=== PATIENT | female | born 1930 | race Caucasian/White ===

== ENCOUNTER → 2017-05-01 | Outpatient (CLI) | payer OTHER ==
[2017-05-01 16:57] LABS: ALT/SGPT 18 U/L (12-78); AST/SGOT 31 U/L (15-37); BLOOD UREA NITROGEN 17 mg/dl (7-18); BUN/CREATININE RATIO 22.3 (10-20); CALCIUM 8.8 mg/dl (8.5-10.1); CARBON DIOXIDE 35 mmol/L (21-32); CHLORIDE 102 mmol/L (98-107); CREATININE 0.74 mg/dl (0.60-1.20); GLUCOSE 62 mg/dl (70-99); POTASSIUM 3.6 mmol/L (3.5-5.1); SODIUM 140 mmol/L (136-145)
[2017-05-01 17:05] LABS: ALB/GLOB RATIO 0.9 (0.9-2); ALKALINE PHOSPHATASE 89 U/L (45-117); CHOLESTEROL 216 mg/dl (0-200); CHOLESTEROL/HDL RATIO 2.8; HDL CHOLESTEROL 77 mg/dl; LDL CHOLESTEROL CALCULATED 124 mg/dl; TRIGLYCERIDES 75 mg/dl (0-150); VERY LOW DENSITY LIPOPROT CALC 15 mg/dl
[2017-05-01 17:24] LABS: HEMATOCRIT 38.3 % (37-47); MEAN CELL VOLUME 94.1 fL (80-100); MEAN CORPUSCULAR HGB CONC 32.9 g/dl (32-36); MEAN PLATELET VOLUME 10.6 fL (7.4-10.4); PLATELET COUNT 213 K/uL (130-400); RED BLOOD COUNT 4.07 M/uL (4.2-5.4); WHITE BLOOD COUNT 8.12 K/uL (4.8-10.8)
[2017-05-01 20:32] LABS: BASO % 0.6 %; BASO ABS # 0.05 K/uL (0-0.2); COMPLETE YES; EOS % 0.9 %; IG% 0.1 %; LYMPH % 50.9 %; LYMPH ABS # 4.13 K/uL (1.2-3.4); MONO % 8.1 %; NEUT % 39.4 %
== END | disposition home or self-care (01) ==
LOC: C.LAB1850 14:33
PROVIDERS: ATTEND Internal Medicine
DX: E03.9 Hypothyroidism, unspecified (principal); J96.91 Respiratory failure, unspecified with hypoxia

== ENCOUNTER → 2017-05-16 | Outpatient (CLI) | payer OTHER ==
--- NOTE | 2017-05-16 16:41 | ECHOCARDIOGRAM REPORT ---
*NOTICE TO RECEIVING [employer] [employer] This information is strictly Confidential and protected under [place] law. [place] law prohibits you from making any further disclosure of this information unless further disclosure is expressly permitted by the written consent of the person to whom it pertains or is authorized by law. A general authorization for the release of medical or other information is not sufficient for this purpose. Hospital accepts no responsibility if the information is made available to any other person, INCLUDING THE PATIENT. Interpretation Summary * Name: JESSIE WASHINGTON Study Date: 05/16/2017 02:13 PM * Patient Location: [facility] HR: 87 * : 1930 (M/d/yyyy) Gender: Female Height: 56 in * Age: 86 yrs Ethnicity: CA Weight: 108 lb * Ordering Physician: Patrick Valdez * Referring Physician: Patrick Valdez * Performed By: Jenifer Alejandra RCS * * Reason For Study: Chest pain * BSA: 1.4 m2 * -- Conclusions -- * Left ventricular systolic function is normal. * No regional wall motion abnormalities noted. * Ejection Fraction = 55-60%. * There is borderline concentric left ventricular hypertrophy. * Grade I diastolic dysfunction, (abnormal relaxation pattern). * Moderate valvular aortic stenosis. * There is mild tricuspid regurgitation. Procedure Details * Left Ventricle The left ventricle is normal in size. There is borderline concentric left ventricular hypertrophy. Ejection Fraction = 55-60%. Left ventricular systolic function is normal. No regional wall motion abnormalities noted. * Right Ventricle The right ventricle is not well visualized. The right ventricular systolic function is normal as assessed by tricuspid annular plane systolic excursion (TAPSE) (normal >1.5 cm). * Atria The left atrium is mildly dilated. Right atrial size is normal. No ASD detected; PFO is not assessed. * Mitral Valve The mitral valve anatomy is normal. There is no mitral valve stenosis. Significant mitral regurgitation is absent. * Tricuspid Valve The tricuspid valve anatomy is normal. There is mild tricuspid regurgitation. * Aortic Valve The aortic valve is not well visualized. Moderate valvular aortic stenosis. Trace aortic regurgitation. * Pulmonic Valve The pulmonary valve is not well seen, but the Doppler examination is normal without significant regurgitation or stenosis. * Great Vessels The aortic root is normal size. * Pericardium/Pleural There is no pericardial effusion. * Left Ventricular Diastolic Function Grade I diastolic dysfunction, (abnormal relaxation pattern). * * MMode 2D Measurements and Calculations * IVSd 0.94 cm * * LVIDd 3.7 cm * LVIDs 2.6 cm * LVPWd 0.83 cm * * IVS/LVPW 1.1 * FS 29.8 % * EDV(Teich) 59.6 ml * ESV(Teich) 25.2 ml * EF(Teich) 57.7 % * * EDV(cubed) 52.3 ml * ESV(cubed) 18.1 ml * EF(cubed) 65.4 % * * LV mass(C)d 96.2 grams * LV mass(C)dI 70.4 grams/m\S\2 * * SV(Teich) 34.4 ml * SI(Teich) 25.2 ml/m\S\2 * SV(cubed) 34.2 ml * SI(cubed) 25.0 ml/m\S\2 * * Ao root diam 2.5 cm * Ao root area 5.1 cm\S\2 * * LVOT diam 2.0 cm * LVOT area 3.2 cm\S\2 * * LVAd ap4 18.3 cm\S\2 * LVLd ap4 6.8 cm * EDV(MOD-sp4) 41.0 ml * EDV(sp4-el) 41.6 ml * LVAs ap4 10.0 cm\S\2 * LVLs ap4 5.5 cm * ESV(MOD-sp4) 17.9 ml * ESV(sp4-el) 15.6 ml * EF(MOD-sp4) 56.4 % * EF(sp4-el) 62.6 % * * LVAd ap2 23.5 cm\S\2 * LVLd ap2 7.5 cm * EDV(MOD-sp2) 59.5 ml * EDV(sp2-el) 62.1 ml * LVAs ap2 11.7 cm\S\2 * LVLs ap2 6.2 cm * ESV(MOD-sp2) 20.8 ml * ESV(sp2-el) 18.7 ml * EF(MOD-sp2) 65.0 % * EF(sp2-el) 69.9 % * * LVLd %diff 9.6 % * EDV(MOD-bp) 52.2 ml * LVLs %diff 11.4 % * ESV(MOD-bp) 20.5 ml * EF(MOD-bp) 60.8 % * * SV(MOD-sp4) 23.1 ml * SI(MOD-sp4) 16.9 ml/m\S\2 * * SV(MOD-sp2) 38.6 ml * SI(MOD-sp2) 28.3 ml/m\S\2 * * SV(MOD-bp) 31.7 ml * SI(MOD-bp) 23.2 ml/m\S\2 * * SV(sp4-el) 26.1 ml * SI(sp4-el) 19.1 ml/m\S\2 * * SV(sp2-el) 43.4 ml * SI(sp2-el) 31.8 ml/m\S\2 * * * Doppler Measurements and Calculations * MV A max nayan 55.3 cm/sec * * MV dec time 0.17 sec * * Ao V2 max 298.6 cm/sec * Ao max PG 35.7 mmHg * Ao max PG (full) 33.4 mmHg * Ao V2 mean 214.1 cm/sec * Ao mean PG 20.8 mmHg * Ao mean PG (full) 19.8 mmHg * Ao V2 VTI 59.5 cm * EZE(I,A) 0.74 cm\S\2 * EZE(I,D) 0.74 cm\S\2 * EZE(V,A) 0.79 cm\S\2 * EZE(V,D) 0.79 cm\S\2 * * LV V1 max PG 2.3 mmHg * LV V1 mean PG 1.0 mmHg * * LV V1 max 75.2 cm/sec * LV V1 mean 45.5 cm/sec * LV V1 VTI 13.9 cm * * SV(Ao) 304.0 ml * SI(Ao) 222.5 ml/m\S\2 * SV(LVOT) 44.0 ml * SI(LVOT) 32.2 ml/m\S\2 * * TR max nayan 246.4 cm/sec * * *
== END | disposition home or self-care (01) ==
LOC: C.CPL 13:59
PROVIDERS: ATTEND Internal Medicine Pulmonary Disease
DX: R07.89 Other chest pain (principal); R06.02 Shortness of breath; R01.1 Cardiac murmur, unspecified

== ENCOUNTER 2017-07-14 14:07 | Inpatient (IN) | payer OTHER ==
[~2017-07-14] VITALS: Ht 149.9 cm; Wt 59.0 kg
[2017-07-14] MEDS ORDERED: LACTATED RINGER'S 1000ML 1,000 ML IV SCH (14:41)
[2017-07-14] MEDS: HYDROmorphone INJ 0.5 MG/0.5 ML SYR IV PRN ×2 (14:53→15:40)
[2017-07-14 15:06] LABS: BASO % 0.4 %; BASO ABS # 0.03 K/uL (0-0.2); COMPLETE YES; EOS % 1.7 %; HEMATOCRIT 38.6 % (37-47); IG% 0.1 %; LYMPH % 47.2 %; LYMPH ABS # 3.41 K/uL (1.2-3.4); MEAN CELL VOLUME 94.1 fL (80-100); MEAN CORPUSCULAR HEMOGLOBIN 29.8 pg (25-34); MEAN CORPUSCULAR HGB CONC 31.6 g/dl (32-36); MEAN PLATELET VOLUME 9.5 fL (7.4-10.4); MONO % 5.5 %; NEUT % 45.1 %; PLATELET COUNT 195 K/uL (130-400); WHITE BLOOD COUNT 7.22 K/uL (4.8-10.8)
[2017-07-14 15:22] LABS: BUN/CREATININE RATIO 19.4 (10-20); CALCIUM 8.6 mg/dl (8.5-10.1); CREATININE 0.79 mg/dl (0.60-1.20)
[2017-07-14] MEDS ORDERED: PARO10TA PO (15:32)
[2017-07-14] MEDS ORDERED: MELA1TAB5 PO (15:32)
[2017-07-14] MEDS ORDERED: MIRT15TA2 PO (15:32)
--- NOTE | 2017-07-14 15:38 | DIAGNOSTIC IMAGING REPORT ---
SINGLE VIEW PELVIS; 2 VIEWS RIGHT HIP CLINICAL HISTORY: Fall with right hip pain. FINDINGS: An AP view of the pelvis with AP and crosstable lateral views of the right hip are obtained. No prior studies are available for comparison at the time of dictation. The skeletal structures are osteopenic. There is an impacted subcapital fracture of the right femur with mild apex lateral angulation. No additional fracture is seen. The bony pelvis and left hip appear intact. Moderate to advanced arthritic change and joint space loss is present in both hips. Sclerotic change is seen in the sacroiliac joints and pubic symphysis. Moderate lumbosacral spondylosis is observed. Mild soft tissue swelling is present in the right upper thigh. There is a nonobstructed abdominal bowel gas pattern. IMPRESSION: 1. There is an impacted and angulated subcapital fracture of the right femur. 2. No additional fracture is seen. 3. Osteopenia and arthritic change as above. Electronically signed by: Asim Pritchett M.D. 07/14/2017 3:36 PM Dictated Date/Time: 07/14/2017 3:35 PM
[2017-07-14 15:43] LABS: INR 0.9 (0.9-1.1)
[2017-07-14] MEDS ORDERED: ONDANSETRON INJ 2 MG/ML 2 ML VIAL IV PRN (15:45)
[2017-07-14] MEDS ORDERED: NALOXONE HCL 0.4 MG/1 ML VIAL/CARP IV PRN (15:45)
[2017-07-14] MEDS ORDERED: BISACODYL 10 MG SUPP PR PRN (15:45)
[2017-07-14] MEDS ORDERED: ALUMINUM/MAGNESIUM/SIMETH (MAALOX MAX) 30 ML UDC PO PRN (15:45)
[2017-07-14] MEDS ORDERED: POLYETHYLENE (MIRALAX) 17 GM PACK PO PRN (15:45)
[2017-07-14] MEDS ORDERED: SOD PHOSPHATE/SOD BIPHOSPHATE ENEMA 132 ML BTL PR PRN (15:45)
[2017-07-14] MEDS ORDERED: MoRPHine SULFATE 4 MG/ML 1 ML CARP\\VIAL IV PRN (15:45)
[2017-07-14] MEDS ORDERED: MAGNESIUM HYDROXIDE SUSP 30 ML UDC PO PRN (15:45)
--- NOTE | 2017-07-14 16:14 | History and Physical ---
History & Physical Date & Time of Service: Jul 14, 2017 at 15:59 Chief Complaint: Fall/Hip Pain Primary Care Physician: RV. Spencer MD History of Present Illness Source: patient, family 86 y/o F Hx restrictive lung disease, moderate , frequent dizzy spells. Pt was out walking when she lost her balance owing to a dizzy spell and fell on her R hip. Severe pain ensued and she was transported to the hospital where an XR confirmed a displaced intertrochanteric fracture. The pt denies CP, SOB or palpitations prior to her fall. She states her dizzy spells have been worked up multiple times and no etiology was defined. 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 Status: Former Smoker Allergies Coded Allergies: No Known Allergies (Unverified , 07/14/17) Home Medications Scheduled Melatonin (Kp Melatonin), 1 TAB PO HS Mirtazapine Soltab (Remeron Soltab), 15 MG PO DAILY Paroxetine Hcl (Paxil), 10 MG PO DAILY Review of Systems Constitutional: No fever, No chills, No sweats Eyes: No worsening of vision ENT: No hearing loss, No unusual epistaxis, No nasal symptoms Respiratory: + shortness of breath (Mild, chronic ), No cough, No wheezing Cardiovascular: No chest pain, No PND Abdomen: No pain, No nausea, No vomiting Musculoskeletal: + joint pain (R hhip) Genitourinary - Female: No dysuria, No urinary frequency, No urinary urgency Neurologic: + vertigo, No memory loss, No paralysis, No weakness Psychiatric: No depression symptoms Endocrine: No fatigue Hematologic / Lymphatic: No abnormal bleeding/bruising Integumentary: No rash Allergic / Immunologic: No environmental allergies Physical Exam Vital Signs Date Time Temp Pulse Resp B/P (MAP) Pulse Ox O2 Delivery O2 Flow Rate FiO2 07/14/17 14:14 36.8 85 18 181/98 97 General Appearance: WD/WN, no apparent distress, + pertinent finding (Average weight elderly female - no distress - AAO x 3) Head: normocephalic Eyes: normal inspection, PERRL, EOMI ENT: normal ENT inspection, hearing grossly normal, TMs normal, pharynx normal Neck: supple, no JVD Respiratory/Chest: chest non-tender, lungs clear, normal breath sounds Cardiovascular: regular rate, rhythm, no edema, no gallop, no JVD Abdomen/GI: normal bowel sounds, non tender, soft Back: normal inspection, no CVA tenderness, + pertinent finding (Kyphosis present) Extremities/Musculoskelatal: + pertinent finding (Ext rotation and shortening of RLE) Neurologic/Psych: hand rounder II-XII nml as tested, no motor/sensory deficits, alert, normal mood/affect, normal reflexes, oriented x 3 Skin: normal color, warm/dry, no rash Diagnostics Laboratory Results Results Past 24 Hours Test 07/14/17 14:41 07/14/17 14:53 Range/Units White Blood Count 7.22 4.8-10.8 K/uL Red Blood Count 4.10 4.2-5.4 M/uL Hemoglobin 12.2 12.0-16.0 g/dL Hematocrit 38.6 37-47 % Mean Corpuscular Volume 94.1 80-100 fL Mean Corpuscular Hemoglobin 29.8 25-34 pg Mean Corpuscular Hemoglobin Concent 31.6 32-36 g/dl Platelet Count 195 130-400 K/uL Mean Platelet Volume 9.5 7.4-10.4 fL Neutrophils (%) (Auto) 45.1 % Lymphocytes (%) (Auto) 47.2 % Monocytes (%) (Auto) 5.5 % Eosinophils (%) (Auto) 1.7 % Basophils (%) (Auto) 0.4 % Neutrophils # (Auto) 3.25 1.4-6.5 K/uL Lymphocytes # (Auto) 3.41 1.2-3.4 K/uL Monocytes # (Auto) 0.40 0.11-0.59 K/uL Eosinophils # (Auto) 0.12 0-0.5 K/uL Basophils # (Auto) 0.03 0-0.2 K/uL RDW Standard Deviation 46.6 36.4-46.3 fL RDW Coefficient of Variation 13.5 11.5-14.5 % Immature Granulocyte % (Auto) 0.1 % Immature Granulocyte # (Auto) 0.01 0.00-0.02 K/uL Prothrombin Time 10.0 9.0-12.0 SECONDS Prothromb Time International Ratio 0.9 0.9-1.1 Activated Partial Thromboplast Time 24.7 21.0-31.0 SECONDS Partial Thromboplastin Ratio 1.0 Sodium Level 141 136-145 mmol/L Potassium Level 4.0 3.5-5.1 mmol/L Chloride Level 102 98-107 mmol/L Carbon Dioxide Level 35 21-32 mmol/L Anion Gap 4.0 3-11 mmol/L Blood Urea Nitrogen 15 7-18 mg/dl Creatinine 0.79 0.60-1.20 mg/dl Est Creatinine Clear Calc Drug Dose 39.2 ml/min Estimated GFR () 78.0 Estimated GFR (Non- 67.3 BUN/Creatinine Ratio 19.4 10-20 Random Glucose 89 70-99 mg/dl Calcium Level 8.6 8.5-10.1 mg/dl Diagnostic Radiology XR: R displaced intertrochanteric fracture Normal EKG Impression Assessment and Plan 86 y/o F Hx restrictive lung disease, moderate , frequent dizzy spells. Pt was out walking when she lost her balance owing to a dizzy spell and fell on her R hip. Severe pain ensued and she was transported to the hospital where an XR confirmed a displaced intertrochanteric fracture. The pt denies CP, SOB or palpitations prior to her fall. She states her dizzy spells have been worked up multiple times and no etiology was defined. 1) Hip fracture - pre-op Per history she does not carry significant risk for surgery and an RCRI is technically 0.4% - her activity may be limited however we have a recent echo on record showing a normal EF without diastolic dysfunction. is present which should not effect outcome. Pt is low risk for moderate risk surgery. 2) Restrictive lung disease - cont 02 protocol - incentive spirometry provided 3) Moderate - can f/u in outpt setting Full code , SCDs pending surgery eval Total time for this admit including review of labs, echo, EKG, XR - discussion with pt and ER attending 33 min Level of Care Med/Surg Resuscitation Status FULL RESUSCITATION VTE Prophylaxis VTE Risk Assessment Done? Y/N: Yes Risk Level: Moderate Given or contraindicated: SCD's
[2017-07-14] MEDS ORDERED: HydrALAZINE HCL 20 MG/ML VIAL IV. PRN (16:15)
[2017-07-14 16:22] LABS: URINE APPEARANCE CLEAR (CLEAR); URINE BILIRUBIN NEG (NEG); URINE COLOR YELLOW; URINE NITRITE NEG (NEG); URINE SPECIFIC GRAVITY 1.014 (1.000-1.030); UROBILINOGEN NEG (NEG); ZZURINE CULT IF INDIC CATH NO
[2017-07-14 16:23] VITALS: O2SAT 97; Ht 149.9 cm; Wt 59.0 kg
[2017-07-14 16:29] LABS: MANUAL MICROSCOPIC REQUIRED? NO; REVIEW REQ? NO
--- NOTE | 2017-07-14 16:29 | DIAGNOSTIC IMAGING REPORT ---
PORTABLE SUPINE AP CHEST RADIOGRAPH CLINICAL HISTORY: Fall. Right hip pain. COMPARISON STUDY: Chest radiograph February 23, 2017. FINDINGS: Evaluation is difficult given severe dextroscoliosis of the thoracic spine. Cardiomediastinal silhouette is stable. There is no evidence of pulmonary edema. No pneumothorax is identified on this supine exam. There is no lobar consolidation. Apparent pleural bilateral opacities are likely artifactual although a small right pleural effusion would be difficult to exclude. Left shoulder arthroplasty is noted. There is an old proximal right humeral fracture. IMPRESSION: 1. Possible small right pleural effusion which may be artifactual. 2. No definite acute cardiopulmonary findings. 3. Technically difficult study to interpret given severe scoliosis. No significant change since previous exam. Electronically signed by: Flip Mason M.D. 07/14/2017 4:27 PM Dictated Date/Time: 07/14/2017 3:36 PM
--- NOTE | 2017-07-14 17:48 | EMERGENCY ROOM VISIT NOTE ---
History Report prepared by Best: Abel Sahu Under the Supervision of: Dr. Prince Campbell M.D. First contact with patient: 14:26 Chief Complaint: FALL Stated Complaint: FALL/HIP PAIN History of Present Illness The patient is a 86 year old female who presents to the Emergency Room with complaints of constant right hip pain s/p fall occurring shortly prior to arrival. She states that she felt dizzy before she fell. She states that feeling dizzy is not abnormal for her, and that she has had intermittent dizziness since she was a child. The patient did not hit her head or lose consciousness. She is on supplemental oxygen at home. She has not fractured a hip before in the past. The patient was unable to get up on her own after her fall. Pt denies headache, visual changes, neck pain, chest pain, breathing difficulties, nausea, vomiting, abdominal pain, back pain, extremity pain, numbness, weakness, open wounds, active bleeding, or other complaints. Source of History: patient Onset: Shortly prior to arrival Position: pelvis (right hip) Timing: constant Associated Symptoms: No LOC Review of Systems See HPI for pertinent positives and negatives. A total of ten systems were reviewed and were otherwise negative. Past Medical & Surgical Medical Problems: (1) Hip fracture Surgical Problems: (1) H/O shoulder surgery Family History No pertinent family history stated. Social History Smoking Status: Former Smoker Occupation Status: retired Current/Historical Medications Scheduled Melatonin (Kp Melatonin), 1 TAB PO HS Mirtazapine Soltab (Remeron Soltab), 15 MG PO DAILY Paroxetine Hcl (Paxil), 10 MG PO DAILY Allergies Coded Allergies: No Known Allergies (Unverified , 07/14/17) Physical Exam Vital Signs Date Time Temp Pulse Resp B/P (MAP) Pulse Ox O2 Delivery O2 Flow Rate FiO2 07/14/17 17:38 73 18 150/84 97 Nasal Cannula 2.0 07/14/17 16:23 97 Nasal Cannula 2.0 07/14/17 15:42 94 18 172/108 97 Nasal Cannula 2.0 07/14/17 15:37 78 07/14/17 14:14 36.8 85 18 181/98 97 Physical Exam GENERAL: Awake, alert, uncomfortable-appearing, in no distress HENT: Normocephalic, atraumatic. Oropharynx unremarkable. EYES: Normal conjunctiva. Sclera non-icteric. NECK: Supple. No nuchal rigidity. FROM. No JVD. RESPIRATORY: Clear to auscultation. CARDIAC: Regular rate, normal rhythm. Extremities warm and well perfused. Pulses equal. ABDOMEN: Soft, non-distended. No tenderness to palpation. No rebound or guarding. No masses. RECTAL: Deferred. MUSCULOSKELETAL: Chest examination reveals no tenderness. The back is symmetrical on inspection without obvious abnormality. There is no CVA tenderness to palpation. No joint edema. Tenderness to the right hip. Right leg is shortened and externally rotated. LOWER EXTREMITIES: Calves are equal size bilaterally and non-tender. No edema. No discoloration. NEURO: Normal sensorium. No sensory or motor deficits noted. SKIN: No rash or jaundice noted. Medical Decision & Procedures ER Provider Diagnostic Interpretation: X-ray: Per my interpretation, radiologist review. SINGLE VIEW PELVIS; 2 VIEWS RIGHT HIP FINDINGS: An AP view of the pelvis with AP and crosstable lateral views of the right hip are obtained. No prior studies are available for comparison at the time of dictation. The skeletal structures are osteopenic. There is an impacted subcapital fracture of the right femur with mild apex lateral angulation. No additional fracture is seen. The bony pelvis and left hip appear intact. Moderate to advanced arthritic change and joint space loss is present in both hips. Sclerotic change is seen in the sacroiliac joints and pubic symphysis. Moderate lumbosacral spondylosis is observed. Mild soft tissue swelling is present in the right upper thigh. There is a nonobstructed abdominal bowel gas pattern. IMPRESSION: 1. There is an impacted and angulated subcapital fracture of the right femur. 2. No additional fracture is seen. 3. Osteopenia and arthritic change as above. Electronically signed by: Asim Pritchett M.D. 07/14/2017 3:36 PM Laboratory Results 07/14/17 14:53 Red Blood Count 4.10, Mean Corpuscular Volume 94.1, Mean Corpuscular Hemoglobin 29.8, Mean Corpuscular Hemoglobin Concent 31.6, Mean Platelet Volume 9.5, Neutrophils (%) (Auto) 45.1, Lymphocytes (%) (Auto) 47.2, Monocytes (%) (Auto) 5.5, Eosinophils (%) (Auto) 1.7, Basophils (%) (Auto) 0.4, Neutrophils # (Auto) 3.25, Lymphocytes # (Auto) 3.41, Monocytes # (Auto) 0.40, Eosinophils # (Auto) 0.12, Basophils # (Auto) 0.03 07/14/17 14:53 Test 07/14/17 14:53 07/14/17 15:33 White Blood Count 7.22 K/uL (4.8-10.8) Red Blood Count 4.10 M/uL (4.2-5.4) Hemoglobin 12.2 g/dL (12.0-16.0) Hematocrit 38.6 % (37-47) Mean Corpuscular Volume 94.1 fL (80-100) Mean Corpuscular Hemoglobin 29.8 pg (25-34) Mean Corpuscular Hemoglobin Concent 31.6 g/dl (32-36) Platelet Count 195 K/uL (130-400) Mean Platelet Volume 9.5 fL (7.4-10.4) Neutrophils (%) (Auto) 45.1 % Lymphocytes (%) (Auto) 47.2 % Monocytes (%) (Auto) 5.5 % Eosinophils (%) (Auto) 1.7 % Basophils (%) (Auto) 0.4 % Neutrophils # (Auto) 3.25 K/uL (1.4-6.5) Lymphocytes # (Auto) 3.41 K/uL (1.2-3.4) Monocytes # (Auto) 0.40 K/uL (0.11-0.59) Eosinophils # (Auto) 0.12 K/uL (0-0.5) Basophils # (Auto) 0.03 K/uL (0-0.2) RDW Standard Deviation 46.6 fL (36.4-46.3) RDW Coefficient of Variation 13.5 % (11.5-14.5) Immature Granulocyte % (Auto) 0.1 % Immature Granulocyte # (Auto) 0.01 K/uL (0.00-0.02) Prothrombin Time 10.0 SECONDS (9.0-12.0) Prothromb Time International Ratio 0.9 (0.9-1.1) Activated Partial Thromboplast Time 24.7 SECONDS (21.0-31.0) Partial Thromboplastin Ratio 1.0 Anion Gap 4.0 mmol/L (3-11) Est Creatinine Clear Calc Drug Dose 39.2 ml/min Estimated GFR () 78.0 Estimated GFR (Non- 67.3 BUN/Creatinine Ratio 19.4 (10-20) Calcium Level 8.6 mg/dl (8.5-10.1) Urine Color YELLOW Urine Appearance CLEAR (CLEAR) Urine pH 8.0 (4.5-7.5) Urine Specific [place] 1.014 (1.000-1.030) Urine Protein NEG (NEG) Urine Glucose (UA) NEG (NEG) Urine Ketones NEG (NEG) Urine Occult Blood NEG (NEG) Urine Nitrite NEG (NEG) Urine Bilirubin NEG (NEG) Urine Urobilinogen NEG (NEG) Urine Leukocyte Esterase NEG (NEG) Laboratory results reviewed by me Medications Administered Medications (Trade) Dose Ordered Sig/Ag Route Start Time Stop Time Status Last Admin Dose Admin Lactated Ringer's 1,000 ml @ 75 mls/hr [id number] IV 07/14/17 14:41 08/13/17 14:40 07/14/17 15:40 75 MLS/HR Hydromorphone HCl (Dilaudid Inj) 0.25 mg Q20M PRN IV 07/14/17 14:45 07/28/17 14:44 07/14/17 15:40 0.25 MG ECG Indication: other (fall) Rate (beats per minute): 78 Rhythm: normal sinus Findings: no acute ischemic change, no ectopy ED Course 1438: The patient was evaluated in room B10. A complete history and physical exam was performed. 1441: Ordered Lactated Ringer's 1000 mL @ 75 mL/hr IV. 1445: Ordered Dilaudid Inj 0.25 mg IV. 1530: I reevaluated the patient. Discussed results and discharge instructions: she verbalized understanding and agreement. The patient is ready for discharge. Medical Decision Prior records reviewed and summarized above. Triage Nursing notes reviewed and agree them. Additional history obtained from family. The patient's history was concerning for traumatic injury. Differential diagnosis: Etiologies such as fracture, dislocation, neurovascular compromise, compartment syndrome, soft tissue injury, as well as others were entertained. Physical examination: Consistent with an isolated hip injury. ER treatment provided: IV lock Zofran 4mg IV Dilaudid 0.5 mg IV NPO Bedrest On reassessment the patient felt better. Diagnostics interpreted by me: ECG: Normal The labs revealed an unremarkable CBC, coags, and chemistry panel. Urinalysis negative. Imaging studies: Xrays as above. The patient has an isolated hip fracture and will need admission to the hospital. Consultation: A consultation was placed with orthopedics in the hospitalist. The case was discussed and diagnostics were reviewed. The patient was evaluated in the ER for further treatment. Medication Reconcilliation Current Medication List: was personally reviewed by me Blood Pressure Screening Patient's blood pressure: Elevated blood pressure Blood pressure disposition: Referred to PCP Consults Time Called: 1528 Consulting Physician: Dr. Richardson -Orthopedics Returned Call: [phone] Discussed the patient's case. Dr. Richardson will see the patient as an inpatient. Additional Consults: Time Called: 1528 Consulted Physician: Dr. Burci[place] [place] Call: [phone] Additional Comments: Discussed the patient's case. The patient will be evaluated for further treatment and disposition. Impression Primary Impression: Hip fracture, right Scribe Attestation The scribe's documentation has been prepared under my direction and personally reviewed by me in its entirety. I confirm that the note above accurately reflects all work, treatment, procedures, and medical decision making performed by me. Departure Information Dispostion Being Evaluated By Hospitalist Referrals RV. Spencer MD (PCP) Patient Instructions My [facility]
[2017-07-14] MEDS: MoRPHine SULFATE 2 MG/ML CARP IV PRN ×3 (18:25→23:09)
[2017-07-14 18:30] VITALS: O2SAT 97
--- NOTE | 2017-07-14 18:32 | HISTORY & PHYSICAL EXAMINATION ---
DATE OF ADMISSION: 07/14/2017 CHIEF COMPLAINT: Right hip pain. WORKING DIAGNOSIS: Of a right femoral neck fracture. HISTORY OF PRESENT ILLNESS: Rosemarie is a delightful, she is 86, soon to be 87. She was at home, lost her balance, fell; subacute injury, right lower extremity. She was transported to the hospital. X-rays just demonstrated a femoral neck fracture. She does have frequent dizzy spells. She did deny any shortness of breath or palpitations prior to her fall. PAST MEDICAL HISTORY: Restrictive lung disease secondary to scoliosis, per report; depression and dizzy spells. PAST SURGICAL HISTORY: Shoulder surgery. FAMILY HISTORY: Father with heart disease, mother with asthma. SOCIAL HISTORY: NonETOH user, retired nurse, nonsmoker. ALLERGIES: Negative. HOME MEDICATIONS: Melatonin, Paxil. REVIEW OF SYSTEMS: She is alert, oriented. She is pleasant, slight built. Denies fevers, sweats, chills, recent illnesses. Denies any ear, nose and throat issues. Denies shortness of breath, wheezing, palpitations or nausea, vomiting. Her positive review is her right hip pain. OBJECTIVE: VITAL SIGNS: Stable. Heart rate about 80 beats per minute was regular right radial pulse and left radial pulse. Blood pressure 181/98 HEENT: Pupils reactive to light and accommodation. Ear, nose and throat - normal. Eyes normal. NECK: Supple nothing unusual. No adenopathy. LUNGS: Clear to auscultation. Normal breath sounds. CARDIAC: Regular rate rhythm of her heart, no palpitations. EXTREMITIES: Her right lower extremity was slightly shortened and externally rotated consistent with a hip fracture. LABORATORY DATA: White cell count 7.22, hemoglobin 12.2. IMPRESSION: A hip fracture, restrictive lung disease. DISPOSITION: 1. She will be admitted to the medical service and we are thankful for that. 2. We will plan to have her surgery tomorrow at 9:00 a.m. for a hemiarthroplasty of the right hip, will keep her n.p.o., will get her consent signed and we will follow her each and every day.
[2017-07-14] MEDS: D5NSS + 20MEQ KCL 1,000 ML IV SCH (20:52)
[2017-07-14] MEDS ORDERED: DOCUSATE SODIUM/SENNA 50/8.6MG TAB PO SCH (21:00)
[2017-07-14] MEDS ORDERED: NON-FORMULARY MEDICATION (Melatonin (Kp Melatonin) 1 TAB) PO SCH (21:00)
[2017-07-14 22:50] VITALS: BP 133/71; PULSE 80; TEMP 36.8; O2SAT 96
[2017-07-15] VITALS (9 sets, daily range): BP systolic 93–115; BP diastolic 59–70; PULSE 73–93; TEMP 36.2–37; O2SAT 91–97
[2017-07-15] MEDS: MoRPHine SULFATE 2 MG/ML CARP IV PRN ×3 (04:08→23:54)
[2017-07-15 05:10] LABS: HEMATOCRIT 34.8 % (37-47); MEAN CELL VOLUME 94.8 fL (80-100); MEAN CORPUSCULAR HGB CONC 31.6 g/dl (32-36); MEAN PLATELET VOLUME 9.7 fL (7.4-10.4); PLATELET COUNT 179 K/uL (130-400); RED BLOOD COUNT 3.67 M/uL (4.2-5.4); WHITE BLOOD COUNT 8.65 K/uL (4.8-10.8)
[2017-07-15 05:33] LABS: BUN/CREATININE RATIO 21.3 (10-20); CALCIUM 7.8 mg/dl (8.5-10.1); CREATININE 0.67 mg/dl (0.60-1.20); MAGNESIUM 1.6 mg/dl (1.8-2.4)
[2017-07-15] MEDS ORDERED: CEFAZOLIN 2000MG IV PUSH 10 ML IV SCH (06:00)
[2017-07-15] MEDS ORDERED: FENTANYL CITRATE INJ 50 MCG/1 ML 2 ML VIAL ONE (06:50)
[2017-07-15] MEDS ORDERED: PROPOFOL IV EMULSION 10 MG/ML 20 ML VIAL IV ONE (06:50)
[2017-07-15] MEDS ORDERED: CISATRACURIUM BESYLATE IV SOLN 2 MG/ML 10 ML VIAL ONE (06:50)
[2017-07-15] MEDS ORDERED: DEXAMETHASONE SOD INJ 4 MG/ML VIAL ONE (06:50)
[2017-07-15] MEDS ORDERED: ONDANSETRON INJ 2 MG/ML 2 ML VIAL ONE (06:50)
[2017-07-15] MEDS ORDERED: LIDOCAINE HCL 2% 2 ML VIAL (20MG/ML) ONE (06:50)
[2017-07-15] MEDS ORDERED: ETOMIDATE 2 MG/ML 20 ML VIAL IV ONE (07:16)
[2017-07-15] MEDS ORDERED: KETAMINE HCL INJ 50 MG/ML 10 ML VIAL ONE (07:16)
[2017-07-15] MEDS ORDERED: BACITRACIN 50000 UNIT VIAL ONE (07:19)
[2017-07-15] MEDS ORDERED: BUPIVACAINE/EPINEPHRINE 0.5% MPF 1:200,000 30 ML VIAL ONE (07:20)
--- NOTE | 2017-07-15 07:21 | History & Physical Bridge Note ---
H&P Re-Evaluation Bridge Note: I have examined the patient, reviewed the History & Physical and in the interval since the performance of the History & Physical I have noted the following changes of clinical significance: No changes noted
--- NOTE | 2017-07-15 07:52 | PROGRESS NOTE ---
DATE: 07/15/2017 SUBJECTIVE: An 86-year-old elderly female admitted last evening with a right displaced femoral neck fracture. This was from a mechanical fall. She usually uses a walker to get around for the most part. No preexisting hip pain. No other injuries. Denies any other complaints. Isolated hip pain. She says she is ready to have this fixed. OBJECTIVE: VITAL SIGNS: Temperature 36.5. Vital signs stable. GENERAL: The patient is a pleasant elderly female. She is lying in bed and looks awake, alert, appropriate and ready to go. EXTREMITIES: Examination of the right leg reveals it to be slightly shortened and externally rotated. There is no knee effusion. She can dorsiflex and plantarflex her foot appropriately. She has pain with any attempted hip motion. No other pains with other joint motion. LABORATORY DATA: Hemoglobin is 11.0. Hematocrit 34.8. Electrolytes are stable. ASSESSMENT: An 86-year-old female with displaced femoral neck fracture. She has been medically optimized and indicated for surgery. PLAN: We will take her to the operating room and do a right cemented bipolar hip arthroplasty. The risks and benefits of procedure were explained to the patient and her son again today. They understand and desire to proceed. Informed consent was obtained. We will proceed with DVT prophylaxis including thigh-high TEDs, SCDs, and aspirin postoperatively. She will likely need a rehab stay.
[2017-07-15] MEDS ORDERED: SUCCINYLCHOLINE CHLORIDE 20 MG/ML 10 ML VIAL IV ONE (08:01)
[2017-07-15] MEDS ORDERED: ESMOLOL HCL 10 MG/ML 10 ML VIAL ONE (08:14)
[2017-07-15] MEDS ORDERED: NEOSTIGMINE METHYLSULFATE 5 MG/5 ML SYR ONE (09:10)
[2017-07-15] MEDS ORDERED: GLYCOPYRROLATE INJ 0.2 MG/ML VIAL ONE (09:10)
--- NOTE | 2017-07-15 09:23 | [facility] Post Operative Brief Note ---
Immediate Operative Summary Operative Date Jul 15, 2017. Pre-Operative Diagnosis Right Displaced Femoral Neck Fracture Post-Operative Diagnosis Right Displaced Femoral Neck Fracture Procedure(s) Performed Right Bipolar Hip Hemiarthroplasty--Cemented Surgeon Dr. Lee [employer] Surgeon(s) LEVI Juárez Estimated Blood Loss 100 ml Findings Displaced femoral neck fracture Fluids (cc crystalloids) 600 cc Specimens A. Right Femoral Head Drains None Anesthesia General Complication(s) None Disposition Recovery Room / PACU
[2017-07-15] MEDS ORDERED: LABETALOL HCL IV 5 MG/ML 20ML IV PRN (09:30)
[2017-07-15] MEDS ORDERED: EpHEDrine SULFATE INJ 50 MG/ML AMP IV PRN (09:30)
[2017-07-15] MEDS ORDERED: ATROPINE SULFATE 0.1 MG/ML 5ML SYR IV PRN (09:30)
[2017-07-15] MEDS ORDERED: PROMETHAZINE HCL INJ 12.5 MG in SODIUM CHLORIDE 0.9% 50ML 50 ML IV PRN (09:30)
[2017-07-15] MEDS ORDERED: MAGNESIUM HYDROXIDE SUSP 30 ML UDC PO PRN (09:30)
[2017-07-15] MEDS ORDERED: NALOXONE HCL 0.4 MG/1 ML VIAL/CARP IV PRN (09:30)
[2017-07-15] MEDS ORDERED: ONDANSETRON INJ 2 MG/ML 2 ML VIAL IV PRN (09:30)
[2017-07-15] MEDS ORDERED: BISACODYL 10 MG SUPP PR PRN (09:30)
--- NOTE | 2017-07-15 10:17 | OPERATIVE REPORT ---
DATE OF OPERATION: 07/14/2017 SURGEON: Gt Lee MD OPERATIONS MGR: LEVI Sotelo PREOPERATIVE DIAGNOSIS: Right displaced femoral neck fracture. POSTOPERATIVE DIAGNOSIS: Same. PROCEDURE PERFORMED: Right cemented bipolar hip arthroplasty. COMPLICATIONS: None. ESTIMATED BLOOD LOSS: 100 mL. FLUID REPLACEMENT: 600 mL crystalloid fluid replacement. ANESTHESIA: General anesthesia. SPECIMENS: Right femoral head sent for pathology. OPERATIVE INDICATIONS: The patient is an 86-year-old fairly active female, who walks with the use of a walker, who sustained a fall yesterday. She has just a kind of lost her balance. She has had no problems with dizziness and she has been worked up extensively with no real findings. She was brought to the emergency room, where x-rays revealed a displaced femoral neck fracture. She was admitted by the medicine service, medically optimized, and indicated for surgical treatment. OPERATIVE IMPLANTS: Operative implants consisted of: 1. A Biomet generation 4 size 9 polished femoral stem. 2. A size 10 centralizer. 3. A +3/28-mm metal articular ball. 4. A 43 bipolar shell and liner. 5. Small distal cement restrictor. OPERATIVE PROCEDURE: The patient was taken to the operating room, identified and placed on the operating table in the supine position. All contact areas were appropriately padded. IV antibiotics were provided by anesthesia team. A general anesthetic was implemented as the patient has significant aortic stenosis. The patient was then placed in the left lateral decubitus position. An axillary roll was placed. Stulberg hip positioner was used for positioning. The right hip and leg were then prepped and draped in the usual sterile fashion. A posterolateral approach to the right hip was then performed through a curvilinear incision centered over the greater trochanter. Sharp dissection was carried out through the subcutaneous tissues down to the level of the IT band and gluteal fascia. The IT band and gluteal fascia were then incised longitudinally in line with the skin incision. The greater trochanteric bursa was excised. The piriformis and external rotators were tagged and taken off the posterior aspect of the joint capsule. Great care was taken throughout the procedure to protect the sciatic nerve at all times. The posterior capsule was then incised in a T-type fashion to allow for later repair. Hip was internally rotated. Femoral neck osteotomy cut was made just below the base of the fracture. The femoral neck that was fractured ____ as well as the femoral head were then removed. I then trialed the acetabulum and a 43 shell fit most appropriately. Attention was then drawn to the femur. The proximal femur was entered with a cookie cutter followed by canal finder and lateralizing reamer. I then broached beginning with a size 7 and progressing up to a 9. Her femur was pretty small, so we stopped there. I then trialed the hip and the +3 articular ball provided full stability and leg length equality. She had full stability in full extension and in external rotation and flexion to 90 degrees and internal rotation to [address] We elected to place these implants. All trial implants were removed. A cement restrictor was placed 14 cm down the canal. The canal was then irrigated extensively. A double batch of Palacos G cement was mixed and injected into the canal. A size 9 Biomet generation 4 femoral stem was then placed and held until cement hardened. A +3/28 mm articular ball with a 43 bipolar shell and liner was placed. The hip was located and once again found to be stable. Attention was then drawn toward closing. The wound was irrigated with copious amounts of normal saline. I did inject with 50 cc of 0.5% Marcaine with epinephrine. The posterior capsule was then repaired with #2 Ti-Cron suture in a toyjei-cu-wzies fashion. The external rotators were repaired to the posterior aspect of the hip abductors with #2 Ti-Cron suture. The IT band and gluteal fascia were then closed with # 1 PDS suture in a running fashion. The subcutaneous tissue was then closed in 2 layers, the deep layer in #1 Vicryl suture and subcutaneous tissues with 2-0 Dexon suture in a buried interrupted fashion. Skin was closed with skin mat. The leg was then cleaned and dried and a sterile dressing of Xeroform, 4 x 4's, ABD pad and foam tape was applied. The patient was then brought out of general anesthesia and transferred to the recovery room in stable condition. The patient tolerated the procedure well with no complications. All needle and sponge counts were correct at the end of the operation. I attest to the content of the Intraoperative Record and any orders documented therein. Any exceptions are noted below. JAMES
--- NOTE | 2017-07-15 10:34 | DIAGNOSTIC IMAGING REPORT ---
RIGHT HIP 2 VIEWS CLINICAL HISTORY: Postoperative examination. FINDINGS: AP and crosstable lateral portable views of the right hip are correlated with pelvic radiograph dated 07/14/2017. The skeletal structures are osteopenic. A unipolar right hip arthroplasty is in near anatomic alignment. No periprosthetic lucency is seen. No acute fracture is identified. Expected postoperative findings overlie the right hip including subcutaneous gas, soft tissue swelling, and skin clips. IMPRESSION: Expected postoperative findings status post right hip arthroplasty. No acute fracture is seen. Electronically signed by: Asim Pritchett M.D. 07/15/2017 10:33 AM Dictated Date/Time: 07/15/2017 10:32 AM
--- NOTE | 2017-07-15 10:36 | Anesthesiology Progress Note ---
Anesthesia Post Op Note Date & Time Jul 15, 2017 at 10:36 Vital Signs Pain Intensity: 0 Vital Signs Past 12 Hours Date Time Temp Pulse Resp B/P (MAP) Pulse Ox O2 Delivery O2 Flow Rate FiO2 07/15/17 10:25 87 17 127/82 96 Oxymask 5 07/15/17 10:15 74 16 126/65 96 Oxymask 10 07/15/17 10:06 61 16 95/61 95 Oxymask 10 07/15/17 09:58 131/86 07/15/17 09:58 36.5 96 20 152/129 96 Oxymask 10 07/15/17 06:55 36.5 93 20 115/70 (85) 94 Nasal Cannula 2.0 07/14/17 23:55 Nasal Cannula 2.0 07/14/17 22:50 36.8 80 16 133/71 (91) 96 Nasal Cannula 2.0 Notes Mental Status: alert / awake / arousable, participated in evaluation Pt Amnestic to Procedure: Yes Nausea / Vomiting: adequately controlled Pain: adequately controlled Airway Patency, RR, SpO2: stable & adequate BP & HR: stable & adequate Hydration State: stable & adequate Anesthetic Complications: no major complications apparent
[2017-07-15] MEDS: D5NSS + 20MEQ KCL 1,000 ML IV SCH (11:08)
[2017-07-15] MEDS: MIRTAZAPINE SOLTAB 15 MG PO SCH (14:35)
[2017-07-15] MEDS: PAROXETINE 20 MG TAB PO SCH (14:36)
[2017-07-15] MEDS: MAGNESIUM SULFATE 1GM / D5W 1 GM in PREMIXED IN D5W 100 ML IV SCH ×2 (15:38→16:42)
--- NOTE | 2017-07-15 15:47 | Progress Note ---
Subjective Date of Service: Jul 15, 2017. Subjective Pt evaluation today including: conversation w/ patient, physical exam, chart review, lab review, review of studies (x-rays. Prior echo 04/2017.), review of inpatient medication list Pain: minimal, right hip PO Intake: just returned from surgery Voiding: andres catheter in place I saw her post-op and she states "I feel great!" Denied any cp, sob, abd pain, nausea, emesis. Reports being on oxygen "because of my scoliosis". Staff report no other issues. Problem List Medical Problems: (1) Hip fracture, right Status: Acute Review of Systems Constitutional: No fever Respiratory: No cough, No shortness of breath Cardiac: No chest pain, No orthopnea Abdomen: No pain Objective Vital Signs Date Time Temp Pulse Resp B/P (MAP) Pulse Ox O2 Delivery O2 Flow Rate FiO2 07/15/17 15:08 36.5 73 16 107/70 (82) 97 Nasal Cannula 2.0 07/15/17 13:50 73 18 100/61 (74) 97 Nasal Cannula 2.0 07/15/17 12:42 87 15 103/63 (76) 96 Nasal Cannula 4.0 07/15/17 12:24 Nasal Cannula 2.0 07/15/17 12:21 95 Nasal Cannula 2.0 07/15/17 11:43 36.2 81 16 102/63 (76) 95 Nasal Cannula 2.0 07/15/17 11:22 36.3 80 16 102/62 (75) 96 Nasal Cannula 2.0 07/15/17 10:45 78 14 104/68 96 Nasal Cannula 2 07/15/17 10:35 36.3 80 15 137/65 97 Oxymask 5 07/15/17 10:25 87 17 127/82 96 Oxymask 5 07/15/17 10:15 74 16 126/65 96 Oxymask 10 07/15/17 10:06 61 16 95/61 95 Oxymask 10 07/15/17 09:58 131/86 07/15/17 09:58 36.5 96 20 152/129 96 Oxymask 10 07/15/17 06:55 36.5 93 20 115/70 (85) 94 Nasal Cannula 2.0 07/14/17 23:55 Nasal Cannula 2.0 07/14/17 22:50 36.8 80 16 133/71 (91) 96 Nasal Cannula 2.0 07/14/17 18:30 97 Nasal Cannula 2.0 07/14/17 17:38 73 18 150/84 97 Nasal Cannula 2.0 07/14/17 16:23 97 Nasal Cannula 2.0 07/14/17 15:42 94 18 172/108 97 Nasal Cannula 2.0 Physical Exam General Appearance: no apparent distress ENT: pharynx normal Neck: no JVD Respiratory/Chest: lungs clear, no respiratory distress, no accessory muscle use Cardiovascular: regular rate, rhythm, no gallop, + systolic murmur (2/6 RUSB) Abdomen: normal bowel sounds, non tender, soft, no organomegaly Extremities: no pedal edema Neurologic/Psychiatric: alert, oriented x 3 Skin: + pertinent finding (large dressing in place, right hip) Comments: musculo - scoliosis of back Laboratory Results Last 24 Hours Test 07/15/17 04:54 07/15/17 10:02 White Blood Count 8.65 K/uL Red Blood Count 3.67 M/uL Hemoglobin 11.0 g/dL 11.2 g/dL Hematocrit 34.8 % 36.0 % Mean Corpuscular Volume 94.8 fL Mean Corpuscular Hemoglobin 30.0 pg Mean Corpuscular Hemoglobin Concent 31.6 g/dl RDW Standard Deviation 47.2 fL RDW Coefficient of Variation 13.5 % Platelet Count 179 K/uL Mean Platelet Volume 9.7 fL Sodium Level 141 mmol/L Potassium Level 4.0 mmol/L Chloride Level 104 mmol/L Carbon Dioxide Level 36 mmol/L Anion Gap 0.0 mmol/L Blood Urea Nitrogen 14 mg/dl Creatinine 0.67 mg/dl Est Creatinine Clear Calc Drug Dose 46.3 ml/min Estimated GFR () 91.6 Estimated GFR (Non- 79.0 BUN/Creatinine Ratio 21.3 Random Glucose 142 mg/dl Calcium Level 7.8 mg/dl Magnesium Level 1.6 mg/dl Assessment and Plan 86yo female: 1. right hip fracture, s/p ORIF today by Dr. Lee. Pain control. PT, OT. asa 325mg BID for DVT proph. Will need rehab. 2. chronic hypoxic respiratory failure, likely due to restrictive lung disease in the setting of severe scoliosis - stable O2 sats on NC O2. 3. hypomagnesemia - replace 2 gms mag sulfate now; repeat mag level in am. 4. very mild acute blood loss anemia - H/H in am. 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 6. h/o abnormal TSH - TSH this summer was high, Free T4 was low - repeat TSH in am. 7. DVT proph - asa 325mg BID. 8. moderate aortic stenosis - no signs/symptoms referrable to such. 9. Bowel regimen. dispo - rehab Continued [facility] stay due to: inadequate oral pain control, ambulation difficulties, multiple IV medications needed Discharge planning: other (rehab )
[2017-07-15] MEDS: CEFAZOLIN IV 1,000 MG in SYRINGE 0 ML IV SCH ×2 (16:40→23:54)
[2017-07-15] MEDS: ASPIRIN/ALUM/MAGNES/CAL CARB 325 MG TAB PO SCH (21:09)
[2017-07-15] MEDS: DOCUSATE SODIUM/SENNA 50/8.6MG TAB PO SCH (21:09)
[2017-07-15] MEDS ORDERED: SODIUM CHLORIDE 0.9% 250ML 250 ML IV STA (23:57)
[2017-07-16] VITALS (11 sets, daily range): BP systolic 70–124; BP diastolic 38–74; PULSE 90–106; TEMP 36.6–38.1; O2SAT 92–96
[2017-07-16] MEDS: MoRPHine SULFATE 2 MG/ML CARP IV PRN ×2 (00:25→05:30)
[2017-07-16] MEDS: CEFAZOLIN IV 1,000 MG in SYRINGE 0 ML IV SCH (00:30)
[2017-07-16] MEDS ORDERED: NURSING VERBAL MED ORDER ONE ×2 (06:15)
[2017-07-16] MEDS ORDERED: SODIUM CHLORIDE 0.9% 250ML 250 ML IV STA (06:19)
[2017-07-16] MEDS ORDERED: SODIUM CHLORIDE 0.9% 500ML 500 ML IV STA (06:25)
[2017-07-16 07:33] LABS: HEMATOCRIT 30.3 % (37-47); MEAN CELL VOLUME 95.3 fL (80-100); MEAN CORPUSCULAR HEMOGLOBIN 29.9 pg (25-34); MEAN CORPUSCULAR HGB CONC 31.4 g/dl (32-36); MEAN PLATELET VOLUME 9.9 fL (7.4-10.4); PLATELET COUNT 158 K/uL (130-400); RED BLOOD COUNT 3.18 M/uL (4.2-5.4); WHITE BLOOD COUNT 9.53 K/uL (4.8-10.8)
--- NOTE | 2017-07-16 08:01 | Discharge Instructions ---
Discharge Instructions Date of Service Jul 16, 2017. Admission Reason for Admission: Hip Fracture Discharge Discharge Diagnosis / Problem: Right Hip Arthroplasty for fracture Discharge Goals Goal(s): Decrease discomfort, Improve function, Increase independence, Improve disease control, Therapeutic intervention Activity Recommendations Activity Level: Assistance Required (Total Hip Precautions) Therapies: Physical Therapy, Occupational Therapy Weightbearing Status: Right weightbearing . Additional Information Patient informed of condition: Yes Advance Directives: Yes DNR: No Level of Care: Acute Rehab Communicable Disease: No Prognosis: Improving Instructions / Follow-Up Instructions / Follow-Up ACTIVITY RECOMMENDATIONS: Physical Therapy: * Aggressive physical therapy is not usually needed. You will learn to take care of yourself safely and walk. * Follow the "Hip Precautions Instructions." * In some cases, the case management social worker at the hospital will arrange to have a therapist come to your house for the first couple of weeks to help you learn these skills. * You need to practice on your own or with the help of a family member as needed. * When you learn these skills, most of the therapy can be done on your own. Home Exercise: * You were shown a series of exercises in the hospital. Do these exercises three to four times each day including the exercises you were shown in physical therapy. Walking: * Get up and walk several times each day. For the first four weeks, try not to stand or walk for more than one hour at a time. If you do stand or walk for more than one hour, you will not hurt anything, but your leg will likely swell. * As you feel comfortable, you may change from the walker or crutches to a cane and then to independent walking. MEDICATIONS: New Medicine: * You will likely be taking one or more of these medicines: 1. Tramdol - Take, as directed, when you need it, every four to six hours to control your pain. 2. Iron Sulfate - Take three times each day for the month after surgery to help you replace the blood lost during surgery. * The most common side effects of pain medicine and iron are nausea and constipation. If nausea or constipation is too much of a problem or if you have any questions about your new medicines or doses, call [facility] at . We will try to help you manage these issues. VERY IMPORTANT TO READ AND REVIEW" Pain: * The immediate post-operative period after hip replacement surgery is often quite painful. * You are given a prescription for pain medicine. You should take it, as directed, when you need it, especially before physical therapy and before going to bed. Pain that interferes with sleep is very common and can last several months. * You will likely need pain medicine for the first two to four weeks. It will not stop all of the pain. The pain will lessen and as you feel better, you may change to milder pain medicine such as Tylenol. * The most common side effects of pain medicine are nausea and constipation, so don't take more than you need. SPECIAL CARE INSTRUCTIONS: TEDs/Elastic Stockings: * The white elastic stockings help limit swelling and prevent blood clots from forming in your legs. The more you wear them, the more they work. * Wear them for six weeks. Prevention of Infection: * Take antibiotics one hour before any dental cleaning, dental work, urological procedure, gastrointestinal procedure or any invasive surgery in order to prevent your new joint from getting infected. * You may get the antibiotics from the doctor performing the procedure or you may call our office at before and we will call in a prescription to the pharmacy of your choice. Things to Watch For: * Drainage from the incision site that occurs more than one week after your surgery. * Severely increased leg pain or swelling. * Increased redness at the incision site. * Fever above 102 degrees Fahrenheit. * Unusual chest pain or shortness of breath. * Unusual pain or burning with urination. Call [facility] at with any of the above problems or if you have any questions about your medicines or recovery. FOLLOW UP VISIT: Make an appointment to see your doctor for approximately two weeks after surgery for a progress check and staple removal by calling the office at . Current Hospital Diet Patient's current hospital diet: Regular Diet Discharge Diet Recommended Diet: Regular Diet Procedures Procedures Performed: Right Bipolar Hip Hemiarthroplasty--Cemented Pending Studies Studies pending at discharge: no Laboratory Results Lipid Panel Test 05/01/17 14:39 Range/Units Triglycerides Level 75 0-150 mg/dl Cholesterol Level 216 H 0-200 mg/dl HDL Cholesterol 77 mg/dl Cholesterol/HDL Ratio 2.8 LDL Cholesterol, Calculated 124 mg/dl Medical Emergencies . Who to Call and When: Medical Emergencies: If at any time you feel your situation is an emergency, please call 911 immediately. . Non-Emergent Contact Non-Emergency issues call your: Surgeon . . "Provider Documentation" section prepared by tG Lee. . Core Measure Problem Core Measures: None
[2017-07-16] MEDS: ACETAMINOPHEN 325 MG TAB PO PRN ×2 (08:02→17:11)
[2017-07-16 08:06] LABS: BUN/CREATININE RATIO 21.2 (10-20); CALCIUM 7.9 mg/dl (8.5-10.1); CREATININE 0.69 mg/dl (0.60-1.20); MAGNESIUM 2.1 mg/dl (1.8-2.4); POTASSIUM 4.1 mmol/L (3.5-5.1)
[2017-07-16 08:16] LABS: THYROID STIMULATING HORMONE 2.38 uIu/ml (0.300-4.500)
[2017-07-16] MEDS: PAROXETINE 20 MG TAB PO SCH (08:26)
[2017-07-16] MEDS: ASPIRIN/ALUM/MAGNES/CAL CARB 325 MG TAB PO SCH ×2 (08:26→21:54)
[2017-07-16] MEDS: MIRTAZAPINE SOLTAB 15 MG PO SCH (08:27)
--- NOTE | 2017-07-16 08:42 | PROGRESS NOTE ---
DATE: 07/16/2017 SUBJECTIVE: An 86-year-old female postop day #1 from a right cemented bipolar hip arthroplasty for a fracture. She is doing well. Denies any real significant pain. No other complaints. OBJECTIVE: VITAL SIGNS: Temperature 37.4. Vital signs stable. GENERAL: Physical examination reveals a pleasant elderly female. She is lying in bed and looks pretty comfortable. EXTREMITIES: Examination of the right hip and leg reveals the leg lengths to be equal. Dressing is clean, dry and intact. Her thigh is soft and supple. She is neurologically intact. She can dorsiflex and plantarflex her foot appropriately. LABORATORY DATA: Hemoglobin 9.5. Hematocrit 30.3. Electrolytes are pending. ASSESSMENT: An 86-year-old white female postop day #1 from right cemented bipolar hip arthroplasty for a fracture, doing quite well. Her pain seems to be improved. Just slightly confused. PLAN: 1. DVT prophylaxis including thigh high TEDs, SCDs and we would recommend aspirin twice a day. 2. PT/OT. Weightbear as tolerated. Right total hip protocol. 3. Pain control. Doing pretty well with current pain regimen. I will try and limit narcotic use to avoid confusion. 4. Medical management as per the medicine service. 5. Disposition. Plan to discharge to rehab facility. I need to see her back 2 weeks out from her surgery date. Any questions can be directed to me at [phone].
[2017-07-16] MEDS: FERROUS SULFATE 325 MG TAB PO SCH ×2 (12:45→17:11)
[2017-07-16] MEDS: ERGOCALCIFEROL 50,000 INTER.UNIT CAP PO SCH (12:45)
[2017-07-16] MEDS ORDERED: SODIUM CHLORIDE 0.9% 1000ML 1,000 ML IV SCH (14:00)
--- NOTE | 2017-07-16 20:11 | Progress Note ---
Subjective Date of Service: Jul 16, 2017. Subjective Pt evaluation today including: conversation w/ patient, conversation w/ family (daughter), physical exam, chart review, lab review, review of inpatient medication list Pain: minimal, right hip PO Intake: poor per staff Voiding: andres catheter in place mild confusion last pm - none this am feels pretty good overall denies dyspnea, chest pain or abdominal pain +flatus Problem List Medical Problems: (1) Hip fracture, right Status: Acute Review of Systems Constitutional: No fever Respiratory: No cough Cardiac: No chest pain, No orthopnea Abdomen: No pain, No nausea, No vomiting Objective Vital Signs Date Time Temp Pulse Resp B/P (MAP) Pulse Ox O2 Delivery O2 Flow Rate FiO2 07/16/17 15:13 36.6 90 16 112/73 (86) 96 Nasal Cannula 2.0 07/16/17 08:24 101 12 109/62 (78) 92 Nasal Cannula 2.0 07/16/17 07:35 Nasal Cannula 2.0 07/16/17 07:11 37.4 99 20 103/69 (80) 92 Nasal Cannula 2.0 07/16/17 06:00 92 100/64 (76) 07/16/17 05:40 90 90/53 (65) 07/16/17 05:35 90 82/48 (59) 07/16/17 05:30 106 70/38 (49) 07/16/17 03:45 37.0 07/16/17 03:30 38.1 101 18 115/65 (82) 93 Nasal Cannula 2.0 07/15/17 23:45 Nasal Cannula 2.0 07/15/17 23:25 37.0 80 18 97/59 (72) 91 Nasal Cannula 2.0 Physical Exam General Appearance: no apparent distress ENT: pharynx normal Neck: no JVD Respiratory/Chest: lungs clear, no respiratory distress, no accessory muscle use Cardiovascular: regular rate, rhythm, no gallop, + systolic murmur (2/6 holosystolic LSB) Abdomen: normal bowel sounds, non tender, soft, no organomegaly Extremities: no pedal edema Neurologic/Psychiatric: alert, oriented x 3 Skin: + pertinent finding (dressings intact right hip) Laboratory Results Last 24 Hours Test 07/16/17 06:56 White Blood Count 9.53 K/uL Red Blood Count 3.18 M/uL Hemoglobin 9.5 g/dL Hematocrit 30.3 % Mean Corpuscular Volume 95.3 fL Mean Corpuscular Hemoglobin 29.9 pg Mean Corpuscular Hemoglobin Concent 31.4 g/dl RDW Standard Deviation 47.6 fL RDW Coefficient of Variation 13.7 % Platelet Count 158 K/uL Mean Platelet Volume 9.9 fL Sodium Level 137 mmol/L Potassium Level 4.1 mmol/L Chloride Level 101 mmol/L Carbon Dioxide Level 32 mmol/L Anion Gap 4.0 mmol/L Blood Urea Nitrogen 15 mg/dl Creatinine 0.69 mg/dl Est Creatinine Clear Calc Drug Dose 44.9 ml/min Estimated GFR () 90.7 Estimated GFR (Non- 78.3 BUN/Creatinine Ratio 21.2 Random Glucose 104 mg/dl Calcium Level 7.9 mg/dl Magnesium Level 2.1 mg/dl 25-Hydroxy Vitamin D Total 12.0 ng/ml Thyroid Stimulating Hormone (TSH) 2.380 uIu/ml Assessment and Plan 86yo female: 1. right hip fracture, s/p ORIF - POD #1 - by Dr. Lee. Pain control sufficient. PT, OT. asa 325mg BID for DVT proph. Will need rehab. 2. chronic hypoxic respiratory failure, likely due to restrictive lung disease in the setting of severe scoliosis - stable O2 sats on NC O2. 3. hypomagnesemia - resolved. 4. mild acute blood loss anemia - lower again today but satisfactory for now. Cont Fe supplementation. CBC am. 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 6. h/o abnormal TSH - repeat TSH wnl. 7. DVT proph - asa 325mg BID. 8. moderate aortic stenosis - no signs/symptoms referrable to such. 9. vitamin D def - ergocalciferol 29599 U twice a week x 8 weeks. 10. mild encephalopathy - hospital psychosis vs toxic (from anesthesia, etc) - resolved. Supportive care. Avoid sedatives. 11. mild tachycardia - probably 2nd to acute blood loss anemia. EKG obtained - NSR; no a. fib/etc. Follow. No signs/symptoms of VTE. family updated d/c andres today dispo - rehab Continued [facility] stay due to: inadequate oral pain control, ambulation difficulties, multiple IV medications needed Discharge planning: other (rehab )
[2017-07-16] MEDS: TRIAMCINOLONE ACET NASAL SPRAY 10.8ML BTL NAE SCH (21:53)
[2017-07-16] MEDS: DOCUSATE SODIUM/SENNA 50/8.6MG TAB PO SCH (21:54)
[2017-07-17] MEDS: POLYETHYLENE (MIRALAX) 17 GM PACK PO SCH ×3 (05:23→18:12)
[2017-07-17 06:00] LABS: MEAN CELL VOLUME 94.8 fL (80-100); MEAN CORPUSCULAR HEMOGLOBIN 30.1 pg (25-34); MEAN CORPUSCULAR HGB CONC 31.7 g/dl (32-36); PLATELET COUNT 156 K/uL (130-400); RED BLOOD COUNT 3.06 M/uL (4.2-5.4); WHITE BLOOD COUNT 10.55 K/uL (4.8-10.8)
[2017-07-17 06:25] LABS: BUN/CREATININE RATIO 24.4 (10-20); CREATININE 0.62 mg/dl (0.60-1.20); POTASSIUM 3.9 mmol/L (3.5-5.1)
[2017-07-17 07:09] VITALS: BP 134/85; PULSE 105; TEMP 36.8; O2SAT 96
--- NOTE | 2017-07-17 07:59 | PROGRESS NOTE ---
DATE: 07/17/2017 SUBJECTIVE: This is an 86-year-old female postop day 2 from a right cemented bipolar hip arthroplasty for fracture. Still slightly confused but seems better. Very agitated by feeling a little bit confused herself. Feels like this is secondary to anesthesia. Denies any real significant pain. OBJECTIVE: VITAL SIGNS: Temperature 36.8. Vital signs stable. GENERAL: This is a pleasant elderly female. She is just a little bit agitated, lying in bed today. EXTREMITIES: Examination of the right leg reveals the leg to be well aligned. Dressing is clean, dry and intact. She can dorsiflex and plantarflex her foot appropriately. She is neurologically intact. LABORATORY DATA: Hemoglobin 9.2, hematocrit 29.0. Electrolytes are stable. ASSESSMENT: An 86-year-old white female postop day 2 from a right cemented bipolar hip arthroplasty for fracture. She is doing well. A little bit agitated. She feels a little bit off to do the anesthesia. PLAN: 1. DVT prophylaxis including thigh-high TEDs, SCDs, and we would recommend aspirin twice a day. 2. PT/OT. Patient weightbear as tolerated with right total hip protocol. 3. Pain control. Try and limit narcotic use to avoid further issues with confusion. 4. Medical management as per the medicine service. 5. Disposition: She is orthopedically stable and acceptable for discharge at any time. I need to see her back 2 weeks postop. Any orthopedic questions can be directed to me at [phone].
[2017-07-17] MEDS: ACETAMINOPHEN 325 MG TAB PO PRN (08:09)
[2017-07-17] MEDS: TRIAMCINOLONE ACET NASAL SPRAY 10.8ML BTL NAE SCH (08:10)
[2017-07-17] MEDS: PAROXETINE 20 MG TAB PO SCH (08:11)
[2017-07-17] MEDS: MIRTAZAPINE SOLTAB 15 MG PO SCH (08:11)
[2017-07-17] MEDS: FERROUS SULFATE 325 MG TAB PO SCH ×2 (08:11→18:11)
[2017-07-17] MEDS: ASPIRIN/ALUM/MAGNES/CAL CARB 325 MG TAB PO SCH ×2 (08:11→20:33)
--- NOTE | 2017-07-17 08:20 | Anesthesiology Progress Note ---
Anesthesia Post Op Note Date & Time Jul 17, 2017 at 08:18 Vital Signs Pain Intensity: 0.0 Vital Signs Past 12 Hours Date Time Temp Pulse Resp B/P (MAP) Pulse Ox O2 Delivery O2 Flow Rate FiO2 07/17/17 07:09 36.8 105 15 134/85 (101) 96 Nasal Cannula 2.0 07/17/17 00:00 Nasal Cannula 2.0 07/16/17 23:20 36.8 102 16 101/64 (76) 95 Nasal Cannula 2.0 Notes Mental Status: alert / awake / arousable Pt Amnestic to Procedure: Yes Nausea / Vomiting: adequately controlled Pain: adequately controlled Airway Patency, RR, SpO2: stable & adequate BP & HR: stable & adequate Hydration State: stable & adequate Anesthetic Complications: no major complications apparent Anesthetic Complications: pt complaining that she still feels groggy from anesthesia ; pt has not had a BM ; pt states she feels grumpy due to anesthesia;
[2017-07-17] MEDS ORDERED: BISACODYL 10 MG SUPP PR ONE (09:15)
--- NOTE | 2017-07-17 11:48 | Hospitalist Progress Note ---
Hospitalist Progress Note Date of Service Jul 17, 2017. (Velvet Coffamn CRNP) Subjective Pt evaluation today including: conversation w/ patient, physical exam, chart review, lab review, review of inpatient medication list Pain: none Voiding: andres catheter in place Ms. Collier reports feeling well this morning, no pain in hip. She does not have any complaints Respiratory: No shortness of breath Cardiovascular: No chest pain Abdomen: No pain, No nausea, No vomiting (Velvet Coffman CRNP) Objective Vital Signs Date Time Temp Pulse Resp B/P (MAP) Pulse Ox O2 Delivery O2 Flow Rate FiO2 07/17/17 08:00 Nasal Cannula 2.0 07/17/17 07:09 36.8 105 15 134/85 (101) 96 Nasal Cannula 2.0 07/17/17 00:00 Nasal Cannula 2.0 07/16/17 23:20 36.8 102 16 101/64 (76) 95 Nasal Cannula 2.0 07/16/17 16:00 Nasal Cannula 2.0 07/16/17 15:13 36.6 90 16 112/73 (86) 96 Nasal Cannula 2.0 (Velvet Coffman CRNP) Physical Exam Notes: General: no distress Eyes: normal inspection, PERLL Respiratory: chest non tender, clear to auscultation, normal breath sounds, no respiratory distress, no accessory muscle use Cardiac: regular rate and rhythm, no rub or gallop, systolic murmur IV/, no edema, no jvd GI/: active bowel sounds, no abd pain or tenderness, soft, non distended Extremities: normal range of motion, normal strength, non tender Neuro/Psych: alert and oriented x 3, normal mood and affect Skin: normal color, dry (Velvet Coffman CRNP) Laboratory Results Last 24 Hours Test 07/17/17 05:35 White Blood Count 10.55 K/uL Red Blood Count 3.06 M/uL Hemoglobin 9.2 g/dL Hematocrit 29.0 % Mean Corpuscular Volume 94.8 fL Mean Corpuscular Hemoglobin 30.1 pg Mean Corpuscular Hemoglobin Concent 31.7 g/dl RDW Standard Deviation 48.3 fL RDW Coefficient of Variation 13.9 % Platelet Count 156 K/uL Mean Platelet Volume 10.0 fL Sodium Level 139 mmol/L Potassium Level 3.9 mmol/L Chloride Level 106 mmol/L Carbon Dioxide Level 30 mmol/L Anion Gap 3.0 mmol/L Blood Urea Nitrogen 15 mg/dl Creatinine 0.62 mg/dl Est Creatinine Clear Calc Drug Dose 50.0 ml/min Estimated GFR () 94.0 Estimated GFR (Non- 81.1 BUN/Creatinine Ratio 24.4 Random Glucose 86 mg/dl Calcium Level 8.0 mg/dl (Velvet Coffman ., OPAL) Assessment and Plan 86 y/o F Hx restrictive lung disease, moderate , frequent dizzy spells. Pt was out walking when she lost her balance owing to a dizzy spell and fell on her R hip. Severe pain ensued and she was transported to the hospital where an XR confirmed a displaced intertrochanteric fracture. The pt denies CP, SOB or palpitations prior to her fall. She states her dizzy spells have been worked up multiple times and no etiology was defined. 1. right hip fracture, s/p ORIF - POD #1 - by Dr. Lee. Pain control sufficient. PT, OT. asa 325mg BID for DVT proph. Will need rehab. 2. chronic hypoxic respiratory failure, likely due to restrictive lung disease in the setting of severe scoliosis - stable O2 sats on NC O2. 3. hypomagnesemia - resolved. 4. mild acute blood loss anemia - lower again today but satisfactory for now. Mildly tachycardic Cont Fe supplementation. CBC am. 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 h/o abnormal TSH - repeat TSH wnl. 7. DVT proph - asa 325mg BID. 8. moderate aortic stenosis - no signs/symptoms referrable to such. 9. vitamin D def - ergocalciferol 44706 U twice a week x 8 weeks. 10. mild encephalopathy - hospital psychosis vs toxic (from anesthesia, etc) - resolved. Supportive care. Avoid sedatives. 11. mild tachycardia - probably 2nd to acute blood loss anemia. EKG obtained - NSR; no a. fib/etc. Follow. No signs/symptoms of VTE. family updated d/c andres today dispo - rehab (Velvet Coffman ., OPAL) Attending Attestation: Pt seen/examined, chart reviewed, care plan d/w OPAL Coffman. I agree w/ the victoria components of her documentation. Pt w/o complaints except that "I got mean again last night" She knows she had confusion once again but this am she was a/o x 3, remembered most details of our conversation yesterday, etc. Poor Urine output per staff and poor appetite still no bowel movement VSS, mildly tachy no fever gen - nad mouth - MM slightly dry neck - no JVD heart - tachy, pacs, s1, s2, 2-3/6 systolic murmur RUSB lungs - CTA b/l abd - soft ext - no edema ankles; mild right thigh swelling skin - incision clean right hip Hb 9.2 Cr stable A/P: 1. POD #2 s/p ORIF for hip fx 2. mild hospital psychosis - follow, supportive care; check u/a and urine cx to ensure no UTI but doubt 3. acute blood loss anemia - Fe supplementation; follow 4. aortic stenosis 5. poor appetite - may be related to constipation - treat the constipation and hopefully this issue will improve son Prince updated by phone dispo plan - [facility] hopefully for rehab Bandar QUINTEROS MD (Vel Quinteros MD)
[2017-07-17] MEDS: D5W AND 1/2NSS + 20MEQ KCL 1,000 ML IV SCH (12:34)
[2017-07-17 12:39] LABS: URINE APPEARANCE CLEAR (CLEAR); URINE BILIRUBIN NEG (NEG); URINE COLOR YELLOW; URINE NITRITE NEG (NEG); URINE PH 5.5 (4.5-7.5); URINE SPECIFIC GRAVITY 1.015 (1.000-1.030); UROBILINOGEN NEG (NEG)
[2017-07-17 12:41] LABS: MANUAL MICROSCOPIC REQUIRED? NO; REVIEW REQ? NO
[2017-07-17 15:05] VITALS: BP 110/75; PULSE 102; TEMP 36.4; O2SAT 98
[2017-07-17 19:29] VITALS: O2SAT 98
[2017-07-17] MEDS: DOCUSATE SODIUM/SENNA 50/8.6MG TAB PO SCH (20:33)
[2017-07-17] MEDS ORDERED: NURSING VERBAL MED ORDER ONE (21:30)
[2017-07-17 22:53] VITALS: BP 109/66; PULSE 100; TEMP 36.9; O2SAT 96
[2017-07-18] MEDS: D5W AND 1/2NSS + 20MEQ KCL 1,000 ML IV SCH ×2 (01:56→13:50)
[2017-07-18 06:19] LABS: HEMATOCRIT 30.1 % (37-47); MEAN CORPUSCULAR HEMOGLOBIN 29.7 pg (25-34); MEAN CORPUSCULAR HGB CONC 31.2 g/dl (32-36); MEAN PLATELET VOLUME 9.9 fL (7.4-10.4); PLATELET COUNT 197 K/uL (130-400); RED BLOOD COUNT 3.17 M/uL (4.2-5.4); WHITE BLOOD COUNT 8.43 K/uL (4.8-10.8)
[2017-07-18 06:55] LABS: CREATININE 0.59 mg/dl (0.60-1.20)
[2017-07-18 07:23] VITALS: BP 135/73; PULSE 90; TEMP 36.8; O2SAT 96
[2017-07-18] MEDS: PAROXETINE 20 MG TAB PO SCH (08:49)
[2017-07-18] MEDS: MIRTAZAPINE SOLTAB 15 MG PO SCH (08:49)
[2017-07-18] MEDS: TRIAMCINOLONE ACET NASAL SPRAY 10.8ML BTL NAE SCH (08:49)
[2017-07-18] MEDS: FERROUS SULFATE 325 MG TAB PO SCH ×2 (08:49→17:58)
[2017-07-18] MEDS: ASPIRIN/ALUM/MAGNES/CAL CARB 325 MG TAB PO SCH ×2 (08:49→21:09)
--- NOTE | 2017-07-18 12:09 | Hospitalist Progress Note ---
Hospitalist Progress Note Date of Service Jul 18, 2017. (Velvet Coffman CRNP) Subjective Pt evaluation today including: conversation w/ patient, physical exam, chart review Voiding: no voiding problems Ms. Collier is much improved from yesterday, sitting in a chair, in good spirits. She says she is 75% better Constitutional: No fever, No chills Respiratory: No cough, No shortness of breath Cardiovascular: No chest pain Abdomen: No pain, No nausea, No vomiting Female : No dysuria All Other Systems: Reviewed and Negative (Velvet Coffman CRNP) Objective Vital Signs Date Time Temp Pulse Resp B/P (MAP) Pulse Ox O2 Delivery O2 Flow Rate FiO2 07/18/17 07:45 Nasal Cannula 07/18/17 07:23 36.8 90 16 135/73 (93) 96 Nasal Cannula 2.0 07/18/17 00:15 Nasal Cannula 07/17/17 22:53 36.9 100 17 109/66 (80) 96 Nasal Cannula 2.0 07/17/17 19:29 98 Nasal Cannula 2.0 07/17/17 15:30 Nasal Cannula 2.0 07/17/17 15:05 36.4 102 16 110/75 (87) 98 Nasal Cannula 2.0 (Velvet Coffman CRNP) Physical Exam Notes: General: no distress Eyes: normal inspection, PERLL Respiratory: chest non tender, clear to auscultation, normal breath sounds, no respiratory distress, no accessory muscle use Cardiac: regular rate and rhythm, no rub or gallop, systolic murmur IV/, no edema, no jvd GI/: active bowel sounds, no abd pain or tenderness, soft, non distended Extremities: normal range of motion, normal strength, non tender Neuro/Psych: alert and oriented x 3, normal mood and affect Skin: normal color, dry (Velvet Coffman CRNP) Laboratory Results Last 24 Hours Test 07/17/17 12:10 07/18/17 05:48 Urine Color YELLOW Urine Appearance CLEAR Urine pH 5.5 Urine Specific [place] 1.015 Urine Protein TRACE Urine Glucose (UA) NEG Urine Ketones NEG Urine Occult Blood NEG Urine Nitrite NEG Urine Bilirubin NEG Urine Urobilinogen NEG Urine Leukocyte Esterase NEG Urine WBC (Auto) 1-5 /hpf Urine RBC (Auto) 5-10 /hpf Urine Hyaline Casts (Auto) 1-5 /lpf Urine Epithelial Cells (Auto) 5-10 /lpf Urine Bacteria (Auto) NEG White Blood Count 8.43 K/uL Red Blood Count 3.17 M/uL Hemoglobin 9.4 g/dL Hematocrit 30.1 % Mean Corpuscular Volume 95.0 fL Mean Corpuscular Hemoglobin 29.7 pg Mean Corpuscular Hemoglobin Concent 31.2 g/dl RDW Standard Deviation 47.9 fL RDW Coefficient of Variation 13.7 % Platelet Count 197 K/uL Mean Platelet Volume 9.9 fL Sodium Level 141 mmol/L Potassium Level 4.0 mmol/L Chloride Level 106 mmol/L Carbon Dioxide Level 31 mmol/L Anion Gap 4.0 mmol/L Blood Urea Nitrogen 14 mg/dl Creatinine 0.59 mg/dl Est Creatinine Clear Calc Drug Dose 52.5 ml/min Estimated GFR () 95.5 Estimated GFR (Non- 82.4 BUN/Creatinine Ratio 23.0 Random Glucose 97 mg/dl Calcium Level 8.0 mg/dl (Velvet Coffman ., OPAL) Assessment and Plan 86 y/o F Hx restrictive lung disease, moderate , frequent dizzy spells. Pt was out walking when she lost her balance owing to a dizzy spell and fell on her R hip. Severe pain ensued and she was transported to the hospital where an XR confirmed a displaced intertrochanteric fracture. The pt denies CP, SOB or palpitations prior to her fall. She states her dizzy spells have been worked up multiple times and no etiology was defined. 1. right hip fracture, s/p ORIF - POD #1 - by Dr. Lee. Pain control sufficient. PT, OT. asa 325mg BID for DVT proph. Will need rehab. 2. chronic hypoxic respiratory failure, likely due to restrictive lung disease in the setting of severe scoliosis - stable O2 sats on NC O2. 3. hypomagnesemia - resolved. 4. mild acute blood loss anemia - stable tachycardia resolved Cont Fe supplementation. 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 h/o abnormal TSH - repeat TSH wnl. 7. DVT proph - asa 325mg BID. 8. moderate aortic stenosis - no signs/symptoms referrable to such. 9. vitamin D def - ergocalciferol 56269 U twice a week x 8 weeks. 10. mild encephalopathy - hospital psychosis vs toxic (from anesthesia, etc) - resolved. Supportive care. Avoid sedatives. A&Ox4 today, telling stories, fluent and appropriate conversation 11. mild tachycardia - probably 2nd to acute blood loss anemia. EKG obtained - NSR; no a. fib/etc. No signs/symptoms of VTE. Resolved today 12. Dehydration - resolved with fluid resuscitation. Kidney function stable. family updated dispo - rehab - likely able to go once authorization and bed available (Velvet Coffman ., OPAL) Attending Attestation: Pt seen/examined, chart reviewed, care plan d/w OPAL Coffman. I agree w/ the victoria components of her documentation. Pt "feels great" and offers no complaints. Had large bowel movement yesterday; appetite now improved. Awaiting auth for [facility]. No further confusion. VSS no fever gen - nad mouth - MMM neck - no JVD heart - tachy, pacs, s1, s2, 2-3/6 systolic murmur RUSB lungs - CTA b/l abd - soft ext - no edema ankles; mild right thigh swelling skin - incision clean right hip; mat intact Hb 9.4 Cr stable A/P: 1. POD #3 s/p ORIF for hip fx 2. mild hospital psychosis - resolved 3. acute blood loss anemia - Fe supplementation; follow - stable H/H today 4. aortic stenosis - no CHF at this time 5. constipation - resolved PT, OT son Prince updated at bedside this am dispo plan - [facility] hopefully - she is good candidate for such Bandar QUINTEROS MD (Vel Quinteros MD)
--- NOTE | 2017-07-18 12:24 | PROGRESS NOTE ---
DATE: 07/18/2017 SUBJECTIVE: This is an 86-year-old female postop day 3 from right cemented bipolar hip arthroplasty for fracture. She is doing much better today. She states she feels great. No significant pain. She feels like the anesthesia has worn off. OBJECTIVE: VITAL SIGNS: Temperature is 36.8. Vital signs stable. GENERAL: Reveals a pleasant elderly female. She is sitting up at her bedside chair and looks quite comfortable. EXTREMITIES: Examination of right hip and leg reveals the dressing to be clean, dry and intact. Hip is located. She can dorsiflex and plantarflex her foot appropriately. Minimal pain with hip motion. NEUROLOGIC: She is neurologically intact. LABORATORY DATA: Hemoglobin 9.4. Hematocrit 30.1. Electrolytes are stable. ASSESSMENT: An 86-year-old white female postop day 3 from a right cemented bipolar hip arthroplasty for fracture. She is doing quite well. Her pain is controlled. She is feeling much better. PLAN: 1. DVT prophylaxis including thigh-high TEDs, SCDs, and aspirin twice a day. 2. PT/OT. She can weightbear as tolerated. Right total hip protocol. 3. Pain control, doing well with current pain regimen. Really should avoid the narcotics if possible to avoid confusion. 4. Medical management as per the medicine service. 5. Disposition: She is orthopedically stable and acceptable for discharge any time medically acceptable. I need to see her back 2 weeks from surgery. Any questions can be directed to me at [phone].
[2017-07-18 15:40] VITALS: BP 120/81; PULSE 103; TEMP 36.9; O2SAT 98
[2017-07-18] MEDS: DOCUSATE SODIUM/SENNA 50/8.6MG TAB PO SCH (21:00)
[2017-07-18] MEDS: ACETAMINOPHEN 325 MG TAB PO PRN (21:09)
[2017-07-18 23:15] VITALS: BP 144/87; PULSE 104; TEMP 36.4; O2SAT 94
[2017-07-19 07:01] VITALS: BP 141/84; PULSE 97; TEMP 36.2; O2SAT 98
[2017-07-19] MEDS: PAROXETINE 20 MG TAB PO SCH (09:03)
[2017-07-19] MEDS: MIRTAZAPINE SOLTAB 15 MG PO SCH (09:03)
[2017-07-19] MEDS: FERROUS SULFATE 325 MG TAB PO SCH ×2 (09:03→17:56)
[2017-07-19] MEDS: ASPIRIN/ALUM/MAGNES/CAL CARB 325 MG TAB PO SCH ×2 (09:03→20:44)
[2017-07-19] MEDS: TRIAMCINOLONE ACET NASAL SPRAY 10.8ML BTL NAE SCH (09:04)
[2017-07-19] MEDS: ERGOCALCIFEROL 50,000 INTER.UNIT CAP PO SCH (09:04)
[2017-07-19 10:29] LABS: HEMATOCRIT 32.7 % (37-47); MEAN CELL VOLUME 95.9 fL (80-100); MEAN CORPUSCULAR HEMOGLOBIN 31.1 pg (25-34); MEAN CORPUSCULAR HGB CONC 32.4 g/dl (32-36); MEAN PLATELET VOLUME 9.3 fL (7.4-10.4); PLATELET COUNT 245 K/uL (130-400); RED BLOOD COUNT 3.41 M/uL (4.2-5.4); WHITE BLOOD COUNT 8.12 K/uL (4.8-10.8)
[2017-07-19 10:53] LABS: BUN/CREATININE RATIO 21.4 (10-20); CALCIUM 8.7 mg/dl (8.5-10.1); CREATININE 0.62 mg/dl (0.60-1.20); POTASSIUM 3.9 mmol/L (3.5-5.1)
--- NOTE | 2017-07-19 11:05 | Hospitalist Progress Note ---
Hospitalist Progress Note Date of Service Jul 19, 2017. (Velvet Coffman CRNP) Subjective Pt evaluation today including: conversation w/ patient, physical exam, chart review, lab review, review of inpatient medication list Voiding: no voiding problems Constitutional: No fever, No chills Respiratory: + shortness of breath (baseline), No cough Cardiovascular: No chest pain, No palpitations Abdomen: No pain, No nausea, No vomiting Female : No dysuria All Other Systems: Reviewed and Negative (Velvet Coffman CRNP) Medications Medications Administered Medications (Trade) Dose Ordered Sig/Ag Route Start Time Stop Time Status Last Admin Dose Admin Lactated Ringer's 1,000 ml @ 75 mls/hr [id number] IV 07/14/17 14:41 07/14/17 22:36 DC 07/14/17 15:40 75 MLS/HR Hydromorphone HCl (Dilaudid Inj) 0.25 mg Q20M PRN IV 07/14/17 14:45 07/14/17 22:36 DC 07/14/17 15:40 0.25 MG Paroxetine HCl (pAXil TAB) 10 mg DAILY PO 07/15/17 09:00 08/14/17 08:59 07/19/17 09:03 10 MG Mirtazapine (Remeron Solutab) 15 mg DAILY PO 07/15/17 09:00 08/14/17 08:59 07/19/17 09:03 15 MG Acetaminophen (Tylenol Tab) 650 mg Q4H PRN PO 07/14/17 15:45 08/13/17 15:44 07/18/17 21:09 650 MG Ondansetron HCl (Zofran Inj) 4 mg Q6H PRN IV 07/14/17 15:45 08/13/17 15:44 07/15/17 10:58 4 MG Potassium Chloride/Dextrose/ Sod Cl 1,000 ml @ 75 mls/hr [id number] IV 07/14/17 18:30 07/15/17 14:29 DC 07/15/17 11:08 75 MLS/HR Cefazolin Sodium 10 ml @ 2.5 mls/min PREOP IV 07/15/17 06:00 07/15/17 16:00 DC 07/15/17 07:35 2.5 MLS/MIN Morphine Sulfate (MoRPHine SULFATE INJ) 2 mg Q2H PRN IV 07/14/17 15:45 07/28/17 15:44 07/16/17 05:30 2 MG Senna/Docusate Sodium (Senokot S Tab) 2 tab HS PO 07/14/17 21:00 07/15/17 10:40 DC 07/14/17 20:52 2 TAB Bacitracin (Bacitracin Inj) 50,000 units STK-MED ONCE .ROUTE 07/15/17 07:19 07/15/17 07:20 DC 07/15/17 08:53 50,000 UNITS Bupivacaine HCl/ Epinephrine Bitart (Sensorcaine/ Epinephrine 0.5% Mpf 1:200,000) 60 ml STK-MED ONCE .ROUTE 07/15/17 07:20 07/15/17 07:21 DC 07/15/17 09:10 47 ML Cefazolin Sodium 1000 mg/Syringe 5 ml @ 1.667 mls/ min Q8H IV 07/15/17 16:00 07/16/17 00:02 DC 07/16/17 00:30 1.667 MLS/MIN Aspirin/Aluminum/ Magnesium/Ca Carb (Ascriptin Tab) 325 mg BID PO 07/15/17 21:00 08/14/17 20:59 07/19/17 09:03 325 MG Senna/Docusate Sodium (Senokot S Tab) 2 tab HS PO 07/15/17 21:00 08/14/17 20:59 07/17/17 20:33 2 TAB Polyethylene (Miralax Powder Packet) 17 gm Q6 PO 07/17/17 06:00 07/17/17 21:32 DC 07/17/17 18:12 17 GM Magnesium Sulfate 1 gm/Prmx 100 ml @ 100 mls/hr Q1H IV 07/15/17 15:00 07/15/17 16:59 DC 07/15/17 16:42 100 MLS/HR Sodium Chloride 250 ml @ 250 mls/hr NOW STAT IV 07/15/17 23:57 07/16/17 00:56 DC 07/16/17 00:30 250 MLS/HR Sodium Chloride 500 ml @ 250 mls/hr NOW STAT IV 07/16/17 06:25 07/16/17 08:24 DC 07/16/17 06:31 250 MLS/HR Ferrous Sulfate (Feosol Tab) 325 mg BIDM PO 07/16/17 08:45 08/15/17 08:44 07/19/17 09:03 325 MG Ergocalciferol (Vitamin D Cap) 50,000 interunit SuWe@0900 PO 07/16/17 12:00 08/15/17 11:59 07/19/17 09:04 50,000 INTERUNIT Sodium Chloride 1,000 ml @ 75 mls/hr [id number] IV 07/16/17 14:00 07/17/17 03:19 DC 07/16/17 14:28 75 MLS/HR Triamcinolone Acetonide (Nasacort Allergy 24hr) 2 sprays DAILY DANIELA 07/16/17 18:45 08/15/17 18:44 07/19/17 09:04 2 SPRAYS Bisacodyl (Dulcolax Supp) 10 mg NOW ONCE MI 07/17/17 09:15 07/17/17 09:16 DC 07/17/17 12:20 10 MG Potassium Chloride/Dextrose/ Sod Cl 1,000 ml @ 75 mls/hr [id number] IV 07/17/17 12:30 07/18/17 14:10 DC 07/18/17 13:50 75 MLS/HR (Velvet Coffman, OPAL) Objective Vital Signs Date Time Temp Pulse Resp B/P (MAP) Pulse Ox O2 Delivery O2 Flow Rate FiO2 07/19/17 08:00 Nasal Cannula 2.0 07/19/17 07:01 36.2 97 16 141/84 (103) 98 Nasal Cannula 2.0 07/18/17 23:40 Nasal Cannula 2.0 07/18/17 23:15 36.4 104 18 144/87 (106) 94 Nasal Cannula 2.0 07/18/17 15:40 36.9 103 18 120/81 (94) 98 Nasal Cannula 2.0 07/18/17 15:20 Nasal Cannula 2.0 (Velvet Coffman, OPAL) Physical Exam Notes: General: no distress Eyes: normal inspection, PERLL Respiratory: chest non tender, clear to auscultation, normal breath sounds, no respiratory distress, no accessory muscle use Cardiac: irregularly irregular rhythm, no rub or gallop, III/ systolic murmur , no edema, no jvd GI/: active bowel sounds, no abd pain or tenderness, soft, non distended Extremities: normal range of motion, normal strength, non tender Neuro/Psych: alert and oriented x 3, normal mood and affect Skin: normal color, dry (Velvet Coffman CRNP) Laboratory Results Last 24 Hours Test 07/19/17 10:08 White Blood Count 8.12 K/uL Red Blood Count 3.41 M/uL Hemoglobin 10.6 g/dL Hematocrit 32.7 % Mean Corpuscular Volume 95.9 fL Mean Corpuscular Hemoglobin 31.1 pg Mean Corpuscular Hemoglobin Concent 32.4 g/dl RDW Standard Deviation 48.4 fL RDW Coefficient of Variation 14.0 % Platelet Count 245 K/uL Mean Platelet Volume 9.3 fL Sodium Level 142 mmol/L Potassium Level 3.9 mmol/L Chloride Level 106 mmol/L Carbon Dioxide Level 31 mmol/L Anion Gap 5.0 mmol/L Blood Urea Nitrogen 13 mg/dl Creatinine 0.62 mg/dl Est Creatinine Clear Calc Drug Dose 49.0 ml/min Estimated GFR () 93.3 Estimated GFR (Non- 80.5 BUN/Creatinine Ratio 21.4 Random Glucose 96 mg/dl Calcium Level 8.7 mg/dl (Velvet Coffman CRNP) Assessment and Plan 86 y/o F Hx restrictive lung disease, moderate , frequent dizzy spells. Pt was out walking when she lost her balance owing to a dizzy spell and fell on her R hip. Severe pain ensued and she was transported to the hospital where an XR confirmed a displaced intertrochanteric fracture. The pt denies CP, SOB or palpitations prior to her fall. She states her dizzy spells have been worked up multiple times and no etiology was defined. 1. right hip fracture, s/p ORIF - 07/15- by Dr. Lee. Pain control sufficient. PT, OT. asa 325mg BID for DVT proph. Will need rehab - [facility] authorization denied, awaiting SNF for rehab 2. chronic hypoxic respiratory failure, likely due to restrictive lung disease in the setting of severe scoliosis - stable O2 sats on NC O2. 3. hypomagnesemia - resolved. 4. mild acute blood loss anemia tachycardic again this morning Cont Fe supplementation. 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 h/o abnormal TSH - repeat TSH wnl. 7. DVT proph - asa 325mg BID. 8. moderate aortic stenosis - no signs/symptoms referrable to such. 9. vitamin D def - ergocalciferol [id number] U twice a week x 8 weeks. 10. mild encephalopathy - hospital psychosis vs toxic (from anesthesia, etc) - resolved. Supportive care. Avoid sedatives. A&Ox4 today, telling stories, fluent and appropriate conversation 11. mild tachycardia - probably 2nd to acute blood loss anemia. EKG ordered again today due to irregular rhythm, previously EKG showed NSR with PVCs - tachycardia with PACs No signs/symptoms of VTE. 12. Dehydration - resolved with fluid resuscitation. Kidney function stable. dispo - rehab - likely able to go once authorization and bed available (Velvet Coffman ., OPAL) ROOM ATTENDANT Physician Supervision Note: I interviewed and examined the patient. Discussed with Velvet Coffman NP and agree with findings and plan as documented in the note. Any exceptions or clarifications are listed here: None Patient here with hip fracture repair 07/15 has history of lung disease and valvular heart disease, she was denied rehabilitation placement is awaiting SNF evaluation Vital signs are stable today is [birth year] birthday Heart is regular with systolic murmur lungs are clear Supportive care rehabilitation for her fracture repair continuing on medication await [facility] placement Documented By: Harsha Amezquita (Harsha Amezquita M.D.)
[2017-07-19 15:22] VITALS: BP 105/70; PULSE 99; TEMP 36.4; O2SAT 98
--- NOTE | 2017-07-19 18:26 | PROGRESS NOTE ---
DATE: 07/19/2017 SUBJECTIVE: An 87-year-old white female, postop day 4 from a right cemented bipolar hip arthroplasty for fracture. She is doing well. Fairly minimal pain. Therapy has gone pretty well. She says she has denied [facility]. OBJECTIVE: VITAL SIGNS: Temperature 36.4. Vital signs stable. PHYSICAL EXAMINATION: GENERAL: This is a pleasant elderly female. She is lying in bed and looks comfortable. EXTREMITIES: Incision is clean, dry and intact. Leg lengths are equal. Hip is located. NEUROLOGIC: She is neurologically intact. LABORATORY DATA: Hemoglobin 10.6, hematocrit 32.7. Electrolytes are stable. ASSESSMENT: An 87-year-old white female postop day 4 from a right cemented bipolar hip arthroplasty for fracture, doing quite well. It sounds like she has denied rehabilitation. She is hoping to be discharged tomorrow. I think she is willing to go to a senior care facility. PLAN: 1. DVT prophylaxis including thigh-high TEDs, SCDs, and aspirin twice a day. 2. PT/OT. Weight bear as tolerated. Right total hip protocol. 3. Pain control, doing well with current pain regimen. 4. Disposition: She is orthopedically stable and acceptable for discharge at any time. I need to see her back 2 weeks out from surgery date. Any questions can be directed to me at [phone].
[2017-07-19] MEDS: DOCUSATE SODIUM/SENNA 50/8.6MG TAB PO SCH (20:44)
[2017-07-19 23:00] VITALS: BP 149/78; PULSE 95; TEMP 37; O2SAT 99
[2017-07-20 07:14] VITALS: BP 115/76; PULSE 95; TEMP 36.7; O2SAT 99
[2017-07-20] MEDS: MIRTAZAPINE SOLTAB 15 MG PO SCH (09:18)
[2017-07-20] MEDS: PAROXETINE 20 MG TAB PO SCH (09:18)
[2017-07-20] MEDS: FERROUS SULFATE 325 MG TAB PO SCH ×2 (09:18→17:52)
[2017-07-20] MEDS: ASPIRIN/ALUM/MAGNES/CAL CARB 325 MG TAB PO SCH ×2 (09:18→20:42)
[2017-07-20] MEDS: TRIAMCINOLONE ACET NASAL SPRAY 10.8ML BTL NAE SCH (09:19)
--- NOTE | 2017-07-20 11:11 | Hospitalist Progress Note ---
Hospitalist Progress Note Date of Service Jul 20, 2017. (Velvet Coffman ., OPAL) Subjective Ms. Collier continues to feel well although she did have a period of confusion over the night, she is quite lucid now and able to recount the incident. She otherwise has no complaints Constitutional: no chills, aches, sweats or fever Respiratory: no sob,cough, sputum, or wheezing Cardiac: no chest pain, palpitations, edema, orthopnea or lightheadedness GI: no abdominal pain, nausea, vomiting, diarrhea or constipation : no dysuria or hesitancy Extremities: no joint pain or weakness Skin: no rash All Other Systems: Reviewed and Negative (Velvet Coffman .OPAL) Medications Medications Administered Medications (Trade) Dose Ordered Sig/Ag Route Start Time Stop Time Status Last Admin Dose Admin Lactated Ringer's 1,000 ml @ 75 mls/hr [id number] IV 07/14/17 14:41 07/14/17 22:36 DC 07/14/17 15:40 75 MLS/HR Hydromorphone HCl (Dilaudid Inj) 0.25 mg Q20M PRN IV 07/14/17 14:45 07/14/17 22:36 DC 07/14/17 15:40 0.25 MG Paroxetine HCl (pAXil TAB) 10 mg DAILY PO 07/15/17 09:00 08/14/17 08:59 07/20/17 09:18 10 MG Mirtazapine (Remeron Solutab) 15 mg DAILY PO 07/15/17 09:00 08/14/17 08:59 07/20/17 09:18 15 MG Acetaminophen (Tylenol Tab) 650 mg Q4H PRN PO 07/14/17 15:45 08/13/17 15:44 07/18/17 21:09 650 MG Ondansetron HCl (Zofran Inj) 4 mg Q6H PRN IV 07/14/17 15:45 08/13/17 15:44 07/15/17 10:58 4 MG Potassium Chloride/Dextrose/ Sod Cl 1,000 ml @ 75 mls/hr [id number] IV 07/14/17 18:30 07/15/17 14:29 DC 07/15/17 11:08 75 MLS/HR Cefazolin Sodium 10 ml @ 2.5 mls/min PREOP IV 07/15/17 06:00 07/15/17 16:00 DC 07/15/17 07:35 2.5 MLS/MIN Morphine Sulfate (MoRPHine SULFATE INJ) 2 mg Q2H PRN IV 07/14/17 15:45 07/28/17 15:44 07/16/17 05:30 2 MG Senna/Docusate Sodium (Senokot S Tab) 2 tab HS PO 07/14/17 21:00 07/15/17 10:40 DC 07/14/17 20:52 2 TAB Bacitracin (Bacitracin Inj) 50,000 units STK-MED ONCE .ROUTE 07/15/17 07:19 07/15/17 07:20 DC 07/15/17 08:53 50,000 UNITS Bupivacaine HCl/ Epinephrine Bitart (Sensorcaine/ Epinephrine 0.5% Mpf 1:200,000) 60 ml STK-MED ONCE .ROUTE 07/15/17 07:20 07/15/17 07:21 DC 07/15/17 09:10 47 ML Cefazolin Sodium 1000 mg/Syringe 5 ml @ 1.667 mls/ min Q8H IV 07/15/17 16:00 07/16/17 00:02 DC 07/16/17 00:30 1.667 MLS/MIN Aspirin/Aluminum/ Magnesium/Ca Carb (Ascriptin Tab) 325 mg BID PO 07/15/17 21:00 08/14/17 20:59 07/20/17 09:18 325 MG Senna/Docusate Sodium (Senokot S Tab) 2 tab HS PO 07/15/17 21:00 08/14/17 20:59 07/19/17 20:44 2 TAB Polyethylene (Miralax Powder Packet) 17 gm Q6 PO 07/17/17 06:00 07/17/17 21:32 DC 07/17/17 18:12 17 GM Magnesium Sulfate 1 gm/Prmx 100 ml @ 100 mls/hr Q1H IV 07/15/17 15:00 07/15/17 16:59 DC 07/15/17 16:42 100 MLS/HR Sodium Chloride 250 ml @ 250 mls/hr NOW STAT IV 07/15/17 23:57 07/16/17 00:56 DC 07/16/17 00:30 250 MLS/HR Sodium Chloride 500 ml @ 250 mls/hr NOW STAT IV 07/16/17 06:25 07/16/17 08:24 DC 07/16/17 06:31 250 MLS/HR Ferrous Sulfate (Feosol Tab) 325 mg BIDM PO 07/16/17 08:45 08/15/17 08:44 07/20/17 09:18 325 MG Ergocalciferol (Vitamin D Cap) 50,000 interunit SuWe@0900 PO 07/16/17 12:00 08/15/17 11:59 07/19/17 09:04 50,000 INTERUNIT Sodium Chloride 1,000 ml @ 75 mls/hr [id number] IV 07/16/17 14:00 07/17/17 03:19 DC 07/16/17 14:28 75 MLS/HR Triamcinolone Acetonide (Nasacort Allergy 24hr) 2 sprays DAILY DANIELA 07/16/17 18:45 08/15/17 18:44 07/20/17 09:19 2 SPRAYS Bisacodyl (Dulcolax Supp) 10 mg NOW ONCE ME 07/17/17 09:15 07/17/17 09:16 DC 07/17/17 12:20 10 MG Potassium Chloride/Dextrose/ Sod Cl 1,000 ml @ 75 mls/hr [id number] IV 07/17/17 12:30 07/18/17 14:10 DC 07/18/17 13:50 75 MLS/HR (Velvet Coffman CRNP) Objective Vital Signs Date Time Temp Pulse Resp B/P (MAP) Pulse Ox O2 Delivery O2 Flow Rate FiO2 07/20/17 08:22 Nasal Cannula 2.0 07/20/17 07:14 36.7 95 16 115/76 (89) 99 Nasal Cannula 2.0 07/20/17 00:00 Nasal Cannula 07/19/17 23:00 37.0 95 16 149/78 (101) 99 Nasal Cannula 2.0 07/19/17 15:50 Nasal Cannula 2.0 07/19/17 15:22 36.4 99 18 105/70 (82) 98 Nasal Cannula 2.0 (Guillard, Velvet ., SKIP HOIST OPERATOR) Physical Exam Notes: General: no distress Eyes: normal inspection, PERLL Respiratory: chest non tender, diminished, fine crackles auscultated in bases, normal breath sounds, no respiratory distress, no accessory muscle use Cardiac: regular rate and rhythm, no rub or gallop, III/ systolic murmur, no edema, no jvd GI/: active bowel sounds, no abd pain or tenderness, soft, non distended Extremities: normal range of motion, normal strength, non tender Neuro/Psych: drowsy and oriented x 3, normal mood and affect Skin: normal color, dry (Velvet Coffman, OPAL) Assessment and Plan 86 y/o F Hx restrictive lung disease, moderate , frequent dizzy spells. Pt was out walking when she lost her balance owing to a dizzy spell and fell on her R hip. Severe pain ensued and she was transported to the hospital where an XR confirmed a displaced intertrochanteric fracture. The pt denies CP, SOB or palpitations prior to her fall. She states her dizzy spells have been worked up multiple times and no etiology was defined. 1. right hip fracture, s/p ORIF - 07/15- by Dr. Lee. Pain control sufficient. PT, OT. asa 325mg BID for DVT proph. Will need rehab - [facility] authorization denied, awaiting SNF for rehab 2. chronic hypoxic respiratory failure, likely due to restrictive lung disease in the setting of severe scoliosis - stable O2 sats on NC O2. 3. hypomagnesemia - resolved. 4. mild acute blood loss anemia tachycardic resolved today Cont Fe supplementation. 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 h/o abnormal TSH - repeat TSH wnl. 7. DVT proph - asa 325mg BID. 8. moderate aortic stenosis - no signs/symptoms referrable to such. 9. vitamin D def - ergocalciferol 81813 U twice a week x 8 weeks. 10. mild encephalopathy - hospital psychosis vs toxic (from anesthesia, etc) - resolved. Supportive care. Avoid sedatives. A&Ox4 today, telling stories, fluent and appropriate conversation 11. mild tachycardia - probably 2nd to acute blood loss anemia. EKG ordered again today due to irregular rhythm, previously EKG showed NSR with PVCs - tachycardia with PACs No signs/symptoms of VTE. Resolved 12. Dehydration - resolved with fluid resuscitation. Kidney function stable. dispo - rehab - likely able to go once authorization and bed available (Velvet Coffman ., OPAL) KEEPER HELPER Physician Supervision Note: I interviewed and examined the patient. Discussed with Velvet Coffman KEEPER HELPER and agree with findings and plan as documented in the note. Any exceptions or clarifications are listed here: None Patient is some mild of shoulder pain was undetermined significance otherwise is doing well postoperatively we're awaiting [facility] facility placement Vital signs are stable her blood pressure is slightly elevated at times Cardiac exam is regular with a systolic murmur lungs are clear Patient status post hip fracture repair and she has chronic hypoxic respiratory failure requiring oxygen we are waiting subacute rehabilitation or [facility] facility placement confirmation Documented By: Harsha Amezquita (Harsha Amezquita M.D.)
[2017-07-20] MEDS: ACETAMINOPHEN 325 MG TAB PO PRN ×3 (11:25→20:44)
[2017-07-20 15:04] VITALS: BP 111/69; PULSE 99; TEMP 36.8; O2SAT 98
[2017-07-20 19:22] VITALS: BP 118/70; PULSE 85; TEMP 36.6; O2SAT 97
[2017-07-20 19:34] VITALS: O2SAT 97
[2017-07-20] MEDS: DOCUSATE SODIUM/SENNA 50/8.6MG TAB PO SCH (20:42)
[2017-07-20 23:40] VITALS: BP 133/68; PULSE 105; TEMP 36.9; O2SAT 98
[2017-07-21 06:55] VITALS: BP 144/79; PULSE 89; TEMP 37; O2SAT 99
[2017-07-21] MEDS: MIRTAZAPINE SOLTAB 15 MG PO SCH (07:29)
[2017-07-21] MEDS: ASPIRIN/ALUM/MAGNES/CAL CARB 325 MG TAB PO SCH (07:29)
[2017-07-21] MEDS: FERROUS SULFATE 325 MG TAB PO SCH (07:29)
[2017-07-21] MEDS: PAROXETINE 20 MG TAB PO SCH (07:29)
[2017-07-21] MEDS: TRIAMCINOLONE ACET NASAL SPRAY 10.8ML BTL NAE SCH (07:30)
[2017-07-21 08:00] VITALS: O2SAT 99
--- NOTE | 2017-07-21 08:22 | PROGRESS NOTE ---
DATE: 07/21/2017 DATE: 07/21/2017 SUBJECTIVE: An 87-year-old white female postop day 6 from a right cemented bipolar hip arthroplasty for fracture. She is doing well. No particular pain. She is just waiting for placement. OBJECTIVE: VITAL SIGNS: Temperature 37.0. Vital signs stable. PHYSICAL EXAMINATION: GENERAL: Reveals a frail elderly female. She is sitting up in her bedside chair and looks quite comfortable. She is awake, alert and oriented. EXTREMITIES: Examination of the right hip reveals the wound to be clean, dry and intact. Leg lengths were equal. Hip is located. She is neurologically intact. ASSESSMENT: An 87-year-old white female postop day 6 from a right cemented bipolar hip arthroplasty for fracture. She is doing well. Just really waiting for replacement. PLAN: 1. DVT prophylaxis including thigh-high TEDs, SCDs, and aspirin twice a day. 2. PT/OT. Weightbearing as tolerated. Right total hip protocol. 3. Pain control. Doing well with current pain regimen. 4. Medical management as per the medicine service. 5. Disposition. She is orthopedically stable and acceptable for discharge at any time. I need to see her back about 2 weeks out from surgery which is about a week from now. Any orthopedic questions can be directed to me at [phone].
--- NOTE | 2017-07-21 10:03 | Discharge Instructions ---
Discharge Instructions Date of Service Jul 21, 2017. Admission Reason for Admission: Hip Fracture Discharge Discharge Diagnosis / Problem: Hip fracture with arthroplasty Discharge Goals Goal(s): Decrease discomfort, Improve function Activity Recommendations Activity Limitations: resume your previous activity Exercise/Sports Limitations: as tolerated Weightbearing Status: Right weightbearing (as tolerated) hip precautions . Instructions / Follow-Up Instructions / Follow-Up Please follow up with Dr. Lee in one week Current Hospital Diet Patient's current hospital diet: Regular Diet Discharge Diet Recommended Diet: Regular Diet Procedures Procedures Performed: Right Bipolar Hip Hemiarthroplasty--Cemented Pending Studies Studies pending at discharge: no Laboratory Results Lipid Panel Test 05/01/17 14:39 Range/Units Triglycerides Level 75 0-150 mg/dl Cholesterol Level 216 H 0-200 mg/dl HDL Cholesterol 77 mg/dl Cholesterol/HDL Ratio 2.8 LDL Cholesterol, Calculated 124 mg/dl Medical Emergencies . Who to Call and When: Medical Emergencies: If at any time you feel your situation is an emergency, please call 911 immediately. . Non-Emergent Contact Non-Emergency issues call your: Primary Care Provider Call Non-Emergent contact if: you have a fever, your pain is not controlled, your pain is worsening, wound has increased drainage, wound has increased redness Past History Medical & Surgical History: (1) Hip fracture, right . "Provider Documentation" section prepared by Velvet Coffman. . VTE Core Measure Inpt VTE Proph given/why not?: SCD's
[2017-07-21 10:23] VITALS: BP 144/79; PULSE 89; TEMP 37; O2SAT 99
--- NOTE | 2017-07-21 10:31 | Discharge Summary ---
Discharge Summary Date of Service Jul 21, 2017. (Velvet Coffman CRNP) Discharge Summary Admission Date: Jul 14, 2017 at 15:45 Discharge Date: Jul 21, 2017 Discharge Disposition: assisted facility Principal Diagnosis: Hip Fracture Problems/Secondary Diagnoses: 1) Restrictive lung disease due to scoliosis - dependent on home 02 2) Scoliosis 3) Depression 4) Moderate on echo 05/11 5) Dizzy spells Procedures: Right Bipolar Hip Hemiarthroplasty--Cemented Hip X-ray IMPRESSION: Expected postoperative findings status post right hip arthroplasty. No acute fracture is seen. CXR IMPRESSION: 1. Possible small right pleural effusion which may be artifactual. 2. No definite acute cardiopulmonary findings. 3. Technically difficult study to interpret given severe scoliosis. No significant change since previous exam. Hip/Pelvis Xray IMPRESSION: 1. There is an impacted and angulated subcapital fracture of the right femur. 2. No additional fracture is seen. 3. Osteopenia and arthritic change as above. (Velvet Coffman CRNP) Medication Reconciliation Continued Medications: Melatonin (Kp Melatonin) 3 Mg Tab 1 TAB PO HS, TAB Mirtazapine Soltab (Remeron Soltab) 15 Mg Soltab 15 MG PO DAILY, TAB Paroxetine Hcl (Paxil) 10 Mg Tab 10 MG PO DAILY, TAB Discharge Exam Constitutional: no chills, aches, sweats or fever Respiratory: no sob,cough, sputum, or wheezing Cardiac: no chest pain, palpitations, edema, orthopnea or lightheadedness GI: no abdominal pain, nausea, vomiting, diarrhea or constipation : no dysuria or hesitancy Extremities: no joint pain or weakness Skin: no rash Physical Exam: General Appearance: WD/WN, no apparent distress Respiratory/Chest: chest non-tender, lungs clear, normal breath sounds, no respiratory distress, no accessory muscle use Cardiovascular: regular rate, rhythm, no edema, no gallop, + pertinent finding (systolic murmur) Abdomen / GI: normal bowel sounds, non tender, soft Skin: normal color, warm/dry, + pertinent finding (incision well approximated, mat intact) (Velvet Coffman CRNP) Hospital Course 86 y/o F Hx restrictive lung disease, moderate , frequent dizzy spells. Pt was out walking when she lost her balance owing to a dizzy spell and fell on her R hip. Severe pain ensued and she was transported to the hospital where an XR confirmed a displaced intertrochanteric fracture. The pt denies CP, SOB or palpitations prior to her fall. She states her dizzy spells have been worked up multiple times and no etiology was defined. Right hip fracture, s/p ORIF - 07/15- by Dr. Lee. Pain control sufficient. PT, OT, hip precautions, weight bearing as tolerated. asa 325mg BID for DVT proph. Will need rehab - to [facility] Chronic hypoxic respiratory failure, likely due to restrictive lung disease in the setting of severe scoliosis - stable O2 sats on NC O2, 2L which is baseline Hypomagnesemia - resolved. Mild acute blood loss anemia tachycardia resolved 07/20 Cont Fe supplementation. 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 DVT proph - asa 325mg BID. Moderate aortic stenosis - no signs/symptoms referrable to such. Vitamin D def - ergocalciferol 13980 U twice a week x 8 weeks. Mild encephalopathy - hospital psychosis vs toxic (from anesthesia, etc) - resolved. Supportive care. Avoid sedatives. A&Ox4 for multiple days at this point, telling stories, fluent and appropriate conversation Mild tachycardia - probably 2nd to acute blood loss anemia. EKG 07/20 due to irregular rhythm, previously EKG showed NSR with PVCs - tachycardia with PACs No signs/symptoms of VTE. Resolved 07/20 Dehydration - resolved with fluid resuscitation. Kidney function stable. Total Time Spent: Less than 30 minutes This includes examination of the patient, discharge planning, medication reconciliation, and communication with other providers. (Velvet Coffman ., OPAL) PATTERN KEEPER Physician Supervision Note: I interviewed and examined the patient. Discussed with Velvet Coffman PATTERN KEEPER and agree with findings and plan as documented in the note. Any exceptions or clarifications are listed here: None Patient is status post ORIF for fracture she had some encephalopathy. Procedure as well as postoperative blood loss anemia this is all resolved over time she is recommended for subacute rehabilitation at [facility] where she transferred today Prior to transfer her vitals are stable heart was regular lungs were clear she was actually doing reasonable with ambulation all while rolling walker and PT oversight She'll be transferred to [facility] continue subcutaneous rehabilitation eventual return home Documented By: Harsha Amezquita (Harsha Amezquita M.D.) Discharge Instructions Please refer to the electronic Patient Visit Report (Discharge Instructions) for additional information. (Velvet Coffman CRNP) Follow-Up Follow up with Dr. Lee in 1 week (Velvet Coffman CRNP) Additional Copies To Gt Lee M.D.
[2017-07-21] MEDS: ACETAMINOPHEN 325 MG TAB PO PRN ×2 (11:27→15:29)
== END 2017-07-21 16:18 | DRG 470 ==
LOC: EDBD 14:07 → C.EDB 14:08 → C.MSN 15:45 → ENRESERV 16:30
PROVIDERS: ADMIT Internal Medicine; ATTEND Internal Medicine
PROC: 0T9B70Z Drainage of Bladder with Drainage Device, Via Natural or Artificial Opening (ICD-10-PCS; 2017-07-14)
PROC: 0SR90J9 Replacement of Right Hip Joint with Synthetic Substitute, Cemented, Open Approach (ICD-10-PCS; principal; 2017-07-15 07:30)
DX: S72.141A Displaced intertrochanteric fracture of right femur, initial encounter for closed fracture (principal); J96.11 Chronic respiratory failure with hypoxia; D62 Acute posthemorrhagic anemia; W19.XXXA Unspecified fall, initial encounter; Y93.01 Activity, walking, marching and hiking; Y92.009 Unspecified place in unspecified non-institutional (private) residence as the place of occurrence of the external cause; Y99.8 Other external cause status; R42 Dizziness and giddiness; J98.4 Other disorders of lung; Z99.81 Dependence on supplemental oxygen; M41.9 Scoliosis, unspecified; E83.42 Hypomagnesemia; E55.9 Vitamin D deficiency, unspecified; K59.00 Constipation, unspecified; E86.0 Dehydration; N18.2 Chronic kidney disease, stage 2 (mild); R79.89 Other specified abnormal findings of blood chemistry; I35.0 Nonrheumatic aortic (valve) stenosis; F32.9 Major depressive disorder, single episode, unspecified; Z87.891 Personal history of nicotine dependence; Z79.899 Other long term (current) drug therapy; Z82.49 Family history of ischemic heart disease and other diseases of the circulatory system; Z82.5 Family history of asthma and other chronic lower respiratory diseases

== ENCOUNTER → 2017-07-24 | Outpatient (CLI) | payer OTHER ==
[~2017-07-24] MED LIST: MELA1TAB5 PO; MIRT15TA2 PO; PARO10TA PO
[2017-07-24 09:34] LABS: BASO % 0.3 %; BASO ABS # 0.02 K/uL (0-0.2); COMPLETE YES; EOS % 2.6 %; HEMATOCRIT 29.7 % (37-47); IG% 0.9 %; LYMPH % 33.8 %; MEAN CELL VOLUME 99.3 fL (80-100); MEAN CORPUSCULAR HEMOGLOBIN 30.4 pg (25-34); MEAN CORPUSCULAR HGB CONC 30.6 g/dl (32-36); MEAN PLATELET VOLUME 8.9 fL (7.4-10.4); NEUT % 53.4 %; PLATELET COUNT 436 K/uL (130-400); RED BLOOD COUNT 2.99 M/uL (4.2-5.4); WHITE BLOOD COUNT 7.99 K/uL (4.8-10.8)
[2017-07-24 09:41] LABS: BLOOD UREA NITROGEN 14 mg/dl (7-18); BUN/CREATININE RATIO 27.8 (10-20); CALCIUM 8.4 mg/dl (8.5-10.1); CARBON DIOXIDE 35 mmol/L (21-32); CHLORIDE 103 mmol/L (98-107); CREATININE 0.51 mg/dl (0.60-1.20); GLUCOSE 79 mg/dl (70-99); SODIUM 141 mmol/L (136-145)
== END ==
LOC: C.LABUPNIT 08:49
PROVIDERS: ATTEND Nurse Practitioner Family
DX: M41.9 Scoliosis, unspecified (principal)

== ENCOUNTER → 2017-07-31 | Outpatient (CLI) | payer OTHER ==
[2017-07-31 08:54] LABS: HEMATOCRIT 30.8 % (37-47)
--- NOTE | 2017-08-03 14:53 | CODING QUERY NO DIAGNOSIS ---
TREATMENT RENDERED WITHOUT A DIAGNOSIS : 1930 To promote full compliance with coding requirements relating to patient care, physician participation is requested in all cases of pre coder uncertainty. Please assist us with providing a diagnosis/symptom for the test(s) below: A diagnosis/symptom was not documented on your Order. A valid diagnosis/symptom is required to bill all insurances. Please remember that we are unable to code a diagnosis of rule out, probable, possible, questionable, or suspected. Tests that require a diagnosis: DOS: 07/31/17 * HEMOGLOBIN & HEMATOCRITE DIAGNOSIS: Provider Signature: Date: Thank you Sita Luna Health Information Management Once completed, please kindly fax back to [phone] For questions please call [phone]
== END ==
LOC: C.LABUPNIT 08:29
PROVIDERS: ATTEND Nurse Practitioner Family
DX: D64.9 Anemia, unspecified (principal)